=== PATIENT | female | born 1955 | race Caucasian/White ===

== ENCOUNTER 2018-09-07 09:10 | Day surgery (SDC) | payer MEDICARE, BC ==
[~2018-09-07] VITALS: Ht 162.6 cm; Wt 80.1 kg
[~2018-09-07 09:10] MED LIST: CYCL10 PO; Desyrel150 MG PO; FLUT1DIS8 INH; HYDSUL200 PO; IBUP800; PANT40 PO; SULF500A PO
[2018-09-07] MEDS ORDERED: HYDR1TAB94 (09:39)
[2018-09-07] MEDS ORDERED: LOSA25 (09:43)
[2018-09-07] MEDS ORDERED: HYDR-86 (09:43)
[2018-09-07] MEDS ORDERED: ALBU2.5V5 (09:44)
[2018-09-07] MEDS ORDERED: TIOT18 (09:44)
[2018-09-07] MEDS ORDERED: FLUO10 (09:45)
[2018-09-07] MEDS ORDERED: ATOR10 (09:45)
[2018-09-07] MEDS ORDERED: LEVSOD50 (09:45)
--- NOTE | 2018-09-07 10:00 | NUR ---
09/07/18 1000 Luli Maki FIRST IV UNSUCCESS IN R HAND SECOND IV SUCCESS IN R AC
--- NOTE | 2018-09-07 11:58 | NUR ---
09/07/18 1158 Luli Maki PT WITH TWISTY COLON PER MD PEÑALOZA. PT REPOSITIONED ONTO BACK IN THE ENDO ROOM TO COMPLETE COLONOSCOPY, UNABLE TO COMPLETE PROCEDURE DUE TO SHARP CORNER IN HER COLON THAT THE SCOPE COULD NOT BE PASSED. PT STABLE DURING THE PROCEDURE.
== END 2018-09-07 12:25 | disposition home or self-care (01) ==
LOC: ORSCSDS 09:10
PROVIDERS: Student in an Organized Health Care Education/Training Program
PROC: 0DB58ZX Excision of Esophagus, Via Natural or Artificial Opening Endoscopic, Diagnostic (ICD-10-PCS; principal; 2018-09-07 10:45)
PROC: 0DB68ZX Excision of Stomach, Via Natural or Artificial Opening Endoscopic, Diagnostic (ICD-10-PCS; principal; 2018-09-07 10:45)
PROC: 0DB98ZX Excision of Duodenum, Via Natural or Artificial Opening Endoscopic, Diagnostic (ICD-10-PCS; principal; 2018-09-07 10:45)
PROC: 0DBN8ZX Excision of Sigmoid Colon, Via Natural or Artificial Opening Endoscopic, Diagnostic (ICD-10-PCS; principal; 2018-09-07 10:45)
DX: K92.1 Melena (principal); R19.7 Diarrhea, unspecified; K21.9 Gastro-esophageal reflux disease without esophagitis; K29.80 Duodenitis without bleeding; K31.7 Polyp of stomach and duodenum; Q40.2 Other specified congenital malformations of stomach; K29.70 Gastritis, unspecified, without bleeding; K44.9 Diaphragmatic hernia without obstruction or gangrene; K63.5 Polyp of colon; I10 Essential (primary) hypertension; J44.9 Chronic obstructive pulmonary disease, unspecified; G47.33 Obstructive sleep apnea (adult) (pediatric); Z79.899 Other long term (current) drug therapy
CPT/HCPCS: 88305; 88342; J2405; J3010

== ENCOUNTER → 2018-09-28 | Outpatient (CLI) | payer MEDICARE, BC ==
[~2018-09-28] MED LIST changes: +ALBU2.5V5; +ATOR10; +FLUO10; +HYDR-86; +HYDR1TAB94; +LEVSOD50; +LOSA25; +TIOT18
== END | disposition home or self-care (01) ==
LOC: LAB 11:10 → LAB SHORT 11:10
DX: M54.9 Dorsalgia, unspecified (principal); G89.29 Other chronic pain; N39.0 Urinary tract infection, site not specified; Z79.899 Other long term (current) drug therapy
CPT/HCPCS: 87077; 87086; 87186; G0480

== ENCOUNTER → 2019-02-08 | Outpatient (CLI) | payer MEDICARE, OTHER | LOC: LAB SHORT 11:59 → LAB EV 11:59 | DX: N39.0 Urinary tract infection, site not specified (principal) | CPT/HCPCS: 87077; 87086; 87186 ==

== ENCOUNTER → 2019-11-15 | Outpatient (CLI) | payer MEDICARE ==
[2019-11-15 18:45] LABS: Bilirubin, Urine Neg (Neg); Blood, Urine Neg (Neg); Glucose Qualitative, Urine Neg (Neg); Ketones, Urine Neg (Neg); Leukocyte Esterase, Urine 1+ (Neg); Nitrite, Urine Neg (Neg); Protein, Urine Neg (Neg); Urobilinogen, Urine NORM (Normal)
[2019-11-15 19:06] LABS: Appearance, Urine Clear (Clear); Color, Urine Yellow (P-Yellow)
[2019-11-15 19:07] LABS: Bacteria Mod /hpf; Red Blood Cells, Urine 0-2 /hpf (0-2); Squamous Epithelial Cells Few /hpf (Few)
== END | disposition home or self-care (01) ==
LOC: LAB SHORT 17:58 → LAB 17:58
PROVIDERS: Nurse Practitioner Family
DX: R35.0 Frequency of micturition (principal)
CPT/HCPCS: 81001

== ENCOUNTER → 2019-12-07 | Outpatient (CLI) | payer MEDICARE | END | disposition home or self-care (01) | LOC: LAB EV 10:45 → LAB SHORT 10:45 | DX: R35.0 Frequency of micturition (principal) | CPT/HCPCS: 87077; 87086; 87186 ==

== ENCOUNTER → 2020-01-21 | Outpatient (CLI) | payer MEDICARE, OTHER | END | disposition home or self-care (01) | LOC: LAB EV 12:16 → LAB SHORT 12:16 | DX: R35.0 Frequency of micturition (principal) | CPT/HCPCS: 87077; 87086; 87186 ==

== ENCOUNTER → 2021-04-11 | Outpatient (CLI) | payer MEDICARE, OTHER ==
[2021-04-11 13:32] LABS: BASOPHILS ABSOLUTE AUTO 0.04 K/mm3 (0.00-0.23); BASOPHILS PERCENT AUTO 1 % (0-2); EOSINOPHILS ABSOLUTE AUTO 0.18 K/mm3 (0.00-0.68); EOSINOPHILS PERCENT AUTO 2 % (0-6); Hematocrit 40.1 % (33.0-51.0); Hemoglobin 12.1 g/dL (11.5-16.0); IMMATURE GRAN ABSOLUTE AUTO 0.03 K/mm3 (0.00-0.10); IMMATURE GRAN PERCENT AUTO 0 % (0-1); LYMPHOCYTES ABSOLUTE AUTO 1.47 K/mm3 (0.84-5.20); LYMPHOCYTES PERCENT AUTO 19 % (21-46); MONOCYTES ABSOLUTE AUTO 0.85 K/mm3 (0.16-1.47); MONOCYTES PERCENT AUTO 11 % (4-13); Mean Corpuscular HGB 27.7 pg (26.0-34.0); Mean Corpuscular HGB Conc 30.2 g/dL (31.5-36.5); Mean Corpuscular Volume 92 fL (80-100); Mean Platelet Volume 9.7 fL (9.1-12.4); NEUTROPHILS ABSOLUTE AUTO 5.32 K/mm3 (1.96-9.15); NEUTROPHILS PERCENT AUTO 67 % (41-73); Platelet Count 251 K/mm3 (150-400); RDW Coefficient Variation 15.2 % (11.7-14.2); RDW Standard Deviation 51.4 fL (35.1-46.3); Red Blood Cell Count 4.37 M/mm3 (3.80-5.20); White Blood Cell Count 7.89 K/mm3 (4.00-11.30)
== END | disposition home or self-care (01) ==
LOC: LAB 12:11 → LAB SHORT 12:11
PROVIDERS: Internal Medicine Rheumatology
DX: M06.9 Rheumatoid arthritis, unspecified (principal)
CPT/HCPCS: 84450; 85025; 85651

== ENCOUNTER → 2021-10-03 | Outpatient (CLI) | payer MEDICARE, OTHER ==
[2021-10-03 13:41] LABS: BASOPHILS ABSOLUTE AUTO 0.08 K/mm3 (0.00-0.23); BASOPHILS PERCENT AUTO 1 % (0-2); EOSINOPHILS ABSOLUTE AUTO 0.36 K/mm3 (0.00-0.68); EOSINOPHILS PERCENT AUTO 4 % (0-6); Hematocrit 41.7 % (33.0-51.0); Hemoglobin 12.5 g/dL (11.5-16.0); IMMATURE GRAN ABSOLUTE AUTO 0.02 K/mm3 (0.00-0.10); IMMATURE GRAN PERCENT AUTO 0 % (0-1); LYMPHOCYTES ABSOLUTE AUTO 2.08 K/mm3 (0.84-5.20); LYMPHOCYTES PERCENT AUTO 22 % (21-46); MONOCYTES ABSOLUTE AUTO 1.08 K/mm3 (0.16-1.47); MONOCYTES PERCENT AUTO 11 % (4-13); Mean Corpuscular HGB 26.8 pg (26.0-34.0); Mean Corpuscular Volume 89 fL (80-100); Mean Platelet Volume 10.6 fL (9.1-12.4); NEUTROPHILS ABSOLUTE AUTO 5.89 K/mm3 (1.96-9.15); NEUTROPHILS PERCENT AUTO 62 % (41-73); Platelet Count 360 K/mm3 (150-400); RDW Coefficient Variation 15.5 % (11.7-14.2); Red Blood Cell Count 4.67 M/mm3 (3.80-5.20); White Blood Cell Count 9.51 K/mm3 (4.00-11.30)
== END | disposition home or self-care (01) ==
LOC: LAB SHORT 09:40 → LAB 09:40
PROVIDERS: Internal Medicine Rheumatology
DX: M06.9 Rheumatoid arthritis, unspecified (principal)
CPT/HCPCS: 84450; 85025; 85651

== ENCOUNTER 2021-12-12 11:53 | Emergency (ER) | payer MEDICARE, OTHER ==
[~2021-12-12] VITALS: Ht 162.6 cm; Wt 71.7 kg
[2021-12-12 12:48] LABS: BASOPHILS ABSOLUTE AUTO 0.06 K/mm3 (0.00-0.23); BASOPHILS PERCENT AUTO 1 % (0-2); EOSINOPHILS ABSOLUTE AUTO 0.27 K/mm3 (0.00-0.68); EOSINOPHILS PERCENT AUTO 3 % (0-6); Hemoglobin 11.6 g/dL (11.5-16.0); IMMATURE GRAN ABSOLUTE AUTO 0.03 K/mm3 (0.00-0.10); IMMATURE GRAN PERCENT AUTO 0 % (0-1); LYMPHOCYTES ABSOLUTE AUTO 1.49 K/mm3 (0.84-5.20); LYMPHOCYTES PERCENT AUTO 16 % (21-46); MONOCYTES ABSOLUTE AUTO 1.23 K/mm3 (0.16-1.47); MONOCYTES PERCENT AUTO 13 % (4-13); Mean Corpuscular HGB 27.3 pg (26.0-34.0); Mean Corpuscular HGB Conc 30.5 g/dL (31.5-36.5); Mean Corpuscular Volume 89 fL (80-100); Mean Platelet Volume 10.1 fL (9.1-12.4); NEUTROPHILS ABSOLUTE AUTO 6.14 K/mm3 (1.96-9.15); NEUTROPHILS PERCENT AUTO 67 % (41-73); Platelet Count 302 K/mm3 (150-400); RDW Coefficient Variation 14.9 % (11.7-14.2); RDW Standard Deviation 48.1 fL (35.1-46.3); Red Blood Cell Count 4.25 M/mm3 (3.80-5.20); White Blood Cell Count 9.22 K/mm3 (4.00-11.30)
[2021-12-12 13:05] LABS: Alanine Aminotransfer (ALT/SGP 20 U/L (12-78); Albumin, Blood 3.3 g/dL (3.4-5.0); Albumin/Globulin Ratio 0.9 (0.8-1.8); Alk Phos 112 U/L (50-136); Anion Gap 6 mmol/L (6-16); Aspartate Aminotrans (AST/SGOT 26 U/L (12-37); Bilirubin, Total 0.7 mg/dL (0.1-1.0); Blood Urea Nitrogen 10 mg/dL (8-24); CO2, Blood 30 mmol/L (21-32); Calcium, Blood 8.9 mg/dL (8.5-10.1); Chloride, Blood 106 mmol/L (98-108); Creatinine, Blood 0.59 mg/dL (0.40-1.00); Globulin, Blood 3.8 g/dL (2.2-4.0); Glomerular Filtration Rate >60 (60-); Glucose, Blood 86 mg/dL (70-99); Potassium, Blood 3.4 mmol/L (3.5-5.5); Sodium, Blood 142 mmol/L (136-145); Total Protein, Blood 7.1 g/dL (6.4-8.2)
== END 2021-12-12 20:03 | disposition home or self-care (01) ==
LOC: ER 11:53
PROVIDERS: Student in an Organized Health Care Education/Training Program
DX: R51.9 Headache, unspecified (principal); I10 Essential (primary) hypertension; J44.9 Chronic obstructive pulmonary disease, unspecified; Z79.899 Other long term (current) drug therapy; Z87.891 Personal history of nicotine dependence
CPT/HCPCS: 36415; 70450; 80053; 85025; J1200; J1790; J1885; J2060; J2550

== ENCOUNTER 2021-12-16 23:16 | Inpatient (IN) | payer MEDICARE, OTHER ==
[~2021-12-16] VITALS: Ht 160 cm; Wt 65.0 kg
[~2021-12-16 23:16] MED LIST changes: +ALBU90OI INH; +ASPI81CH PO; -ATOR10; +ATOR80 PO; +CLOP75 PO; -HYDR1TAB94; -IBUP800; +IBUP800 PO; +LEVSOD137 PO; -LOSA25; +LOSA50 PO; +Norco 7.5-3251 EACH PO; -TIOT18; +TIOT18 INH
[2021-12-17 00:23] LABS: BASOPHILS ABSOLUTE AUTO 0.07 K/mm3 (0.00-0.23); BASOPHILS PERCENT AUTO 1 % (0-2); EOSINOPHILS ABSOLUTE AUTO 0.28 K/mm3 (0.00-0.68); EOSINOPHILS PERCENT AUTO 2 % (0-6); Hematocrit 40.6 % (33.0-51.0); Hemoglobin 12.9 g/dL (11.5-16.0); IMMATURE GRAN ABSOLUTE AUTO 0.05 K/mm3 (0.00-0.10); IMMATURE GRAN PERCENT AUTO 0 % (0-1); LYMPHOCYTES ABSOLUTE AUTO 1.34 K/mm3 (0.84-5.20); LYMPHOCYTES PERCENT AUTO 11 % (21-46); MONOCYTES ABSOLUTE AUTO 1.44 K/mm3 (0.16-1.47); MONOCYTES PERCENT AUTO 12 % (4-13); Mean Corpuscular HGB 27.9 pg (26.0-34.0); Mean Corpuscular HGB Conc 31.8 g/dL (31.5-36.5); Mean Corpuscular Volume 88 fL (80-100); Mean Platelet Volume 10.4 fL (9.1-12.4); NEUTROPHILS PERCENT AUTO 73 % (41-73); Platelet Count 314 K/mm3 (150-400); RDW Coefficient Variation 14.1 % (11.7-14.2); RDW Standard Deviation 45.4 fL (35.1-46.3); Red Blood Cell Count 4.62 M/mm3 (3.80-5.20); White Blood Cell Count 11.88 K/mm3 (4.00-11.30)
[2021-12-17 00:38] LABS: International Normalized Ratio 1.14; Prothrombin Time Results 11.9 Sec (9.7-11.5)
[2021-12-17 00:48] LABS: Alanine Aminotransfer (ALT/SGP 22 U/L (12-78); Albumin/Globulin Ratio 0.8 (0.8-1.8); Alk Phos 95 U/L (50-136); Anion Gap 8 mmol/L (6-16); Aspartate Aminotrans (AST/SGOT 31 U/L (12-37); Bilirubin, Total 0.5 mg/dL (0.1-1.0); Blood Urea Nitrogen 19 mg/dL (8-24); Bun/Creatinine Ratio 25.8 (12.0-20.0); CO2, Blood 26 mmol/L (21-32); Calcium, Blood 8.7 mg/dL (8.5-10.1); Chloride, Blood 104 mmol/L (98-108); Creatinine, Blood 0.74 mg/dL (0.40-1.00); Ethanol (Alcohol), Blood, Med <3 mg/dL; Globulin, Blood 3.8 g/dL (2.2-4.0); Glomerular Filtration Rate >60 (60-); Glucose, Blood 145 mg/dL (70-99); Potassium, Blood 3.8 mmol/L (3.5-5.5); Sodium, Blood 138 mmol/L (136-145); Total Protein, Blood 6.8 g/dL (6.4-8.2)
[2021-12-17 01:20] LABS: Source, Urine Foley catheter
[2021-12-17 01:26] LABS: Bilirubin, Urine Neg (Neg); Blood, Urine Neg (Neg); Glucose Qualitative, Urine Neg (Neg); Ketones, Urine Neg (Neg); Leukocyte Esterase, Urine Neg (Neg); Nitrite, Urine Neg (Neg); Protein, Urine 2+ (Neg); Urobilinogen, Urine NORM (Normal); pH, Urine 6.5 (5.0-8.0)
[2021-12-17 01:32] LABS: Appearance, Urine Clear (Clear); Bacteria Not Seen /hpf; Color, Urine Yellow (P-Yellow); Red Blood Cells, Urine Not Seen /hpf (0-2); Squamous Epithelial Cells Not Seen /hpf (Few); White Blood Cells, Urine Rare /hpf (0-5)
[2021-12-17 01:36] LABS: U Amphetamine Screen Not Detected; U Barbituate Screen Not Detected; U Benzodiazapine Screen DETECTED; U Buprenorphine Screen Not Detected; U Cannabinoids Screen Not Detected; U Cocaine Screen Not Detected; U Methadone Screen Not Detected; U Methamphetamine Screen Not Detected; U Opiates Screen Not Detected; U Oxycodone Screen Not Detected; U Phencyclidine Screen Not Detected; U Propoxyphene Screen Not Detected
[2021-12-17 02:37] LABS: PCO2 Arterial 41.9 mmHg (35-45); PO2 Arterial 55.4 mmHg (80-100); pH Blood Arterial 7.38 (7.35-7.45)
--- NOTE | 2021-12-17 03:37 | NUR ---
ASSUMED CARE. PT ARRIVED TO ICU AT APPROXIMATELY 0320. REPORT RECEIVED FROM ER NURSE. PT ON 3 L/MIN 02 VIA NC. PT SEDATED BUT AROUSABLE, WILL OPEN EYES BUT DOES NOT RESPOND VERBALLY OR FOLLOW COMMANDS. ER NURSE STATED PATIENT RECEIVED AROUND 6MG ATIVAN FOR AGITATION IN THE ER PRIOR TO COMING TO ICU. PT HAS IV ACCESS IN R/AC, L/AC AND L/WRIST. JOSE CATHETER IN PLACE, YELLOW URINE OUTPUT NOTED. VS STABLE AT TIME OF ARRIVAL, WILL CONTINUE TO MONITOR.
--- NOTE | 2021-12-17 06:39 | NUR ---
SHIFT SUMMARY. PT SLEPT IN BED FROM TIME OF ADMISSION UNTIL NOW. NS RUNNING AT 75 ML/HR. 02 3 L/MIN VIA NC. JOSE CATHETER IN PLACE, 200 MLS OUT. VS STABLE, SEE ASSESSMENT FOR FURTHER DETAILS. WILL CONTINUE TO MONITOR AND REPORT OFF TO DAYSHIFT RN.
--- NOTE | 2021-12-17 07:19 | NUR ---
Assumed care of pt at 0700. Report received from Tam MOYA. Pt is PCU status. Sleeping in bed at this time. VSS.
[2021-12-17 08:05] LABS: BASOPHILS ABSOLUTE AUTO 0.09 K/mm3 (0.00-0.23); BASOPHILS PERCENT AUTO 1 % (0-2); EOSINOPHILS ABSOLUTE AUTO 0.25 K/mm3 (0.00-0.68); EOSINOPHILS PERCENT AUTO 2 % (0-6); Hematocrit 40.5 % (33.0-51.0); Hemoglobin 12.5 g/dL (11.5-16.0); IMMATURE GRAN ABSOLUTE AUTO 0.03 K/mm3 (0.00-0.10); IMMATURE GRAN PERCENT AUTO 0 % (0-1); LYMPHOCYTES ABSOLUTE AUTO 2.08 K/mm3 (0.84-5.20); LYMPHOCYTES PERCENT AUTO 17 % (21-46); MONOCYTES ABSOLUTE AUTO 1.96 K/mm3 (0.16-1.47); MONOCYTES PERCENT AUTO 16 % (4-13); Mean Corpuscular HGB 27.5 pg (26.0-34.0); Mean Corpuscular HGB Conc 30.9 g/dL (31.5-36.5); Mean Corpuscular Volume 89 fL (80-100); Mean Platelet Volume 10.2 fL (9.1-12.4); NEUTROPHILS ABSOLUTE AUTO 7.57 K/mm3 (1.96-9.15); NEUTROPHILS PERCENT AUTO 63 % (41-73); Platelet Count 273 K/mm3 (150-400); RDW Coefficient Variation 14.2 % (11.7-14.2); RDW Standard Deviation 46.5 fL (35.1-46.3); Red Blood Cell Count 4.54 M/mm3 (3.80-5.20); White Blood Cell Count 11.98 K/mm3 (4.00-11.30)
[2021-12-17 08:24] LABS: Alanine Aminotransfer (ALT/SGP 19 U/L (12-78); Albumin/Globulin Ratio 0.8 (0.8-1.8); Alk Phos 93 U/L (50-136); Anion Gap 8 mmol/L (6-16); Aspartate Aminotrans (AST/SGOT 36 U/L (12-37); Bilirubin, Total 0.5 mg/dL (0.1-1.0); Blood Urea Nitrogen 17 mg/dL (8-24); Bun/Creatinine Ratio 29.9 (12.0-20.0); CO2, Blood 22 mmol/L (21-32); Calcium, Blood 8.4 mg/dL (8.5-10.1); Chloride, Blood 109 mmol/L (98-108); Creatinine, Blood 0.57 mg/dL (0.40-1.00); Globulin, Blood 3.6 g/dL (2.2-4.0); Glomerular Filtration Rate >60 (60-); Glucose, Blood 86 mg/dL (70-99); Potassium, Blood 3.8 mmol/L (3.5-5.5); Sodium, Blood 139 mmol/L (136-145); Total Protein, Blood 6.6 g/dL (6.4-8.2)
--- NOTE | 2021-12-17 08:45 | NUR ---
Report given to Merly MOYA, who assumes care of pt at this time
--- NOTE | 2021-12-17 09:08 | NUR ---
ASSUMED CARE AT 0845. PT SLEEPING BUT AWAKES TO VOICE AND FOLLOWS COMMANDS. AT BEDSIDE. SEE SHIFT ASSESSMENT FOR DETAILS.
--- NOTE | 2021-12-17 14:39 | NUR ---
Initial palliative care consult: Ofelia is a 66 year old with a history of COPD, HTN, hyperlidipidemia, depression, hypothroidism, RA, sleep apnea, chronic back pain. 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 Ofelia slept through the visit, she did not awaken to voice. Her Leroy is at the bedside and the visit was spent talking with him. Leroy reports Ofelia was recently admitted for a CVA. She has a sister who had a CVA in her 60s who now has no residual effects. Leroy reports last night that when they got home from the hospital that Ofelia was weak. Leroy reports that Ofelia had a fall in the bathroom last night and he had to call 911 to have the paramedics come pick her up and take her to the hospital. He states her eyes were wide open and her mouth was wide open. He reports that this was very scarey for him. Ofelia was a DNR during the last admission but he states he changed her code status to a full code earlier today as he is waiting for their dtr to come from [place] and he didn't want to have something happen to Ofelia prior to her dtr getting here. Leroy reports that Ofelia prior to her CVA was very active. She drove, shopped and was able to perform her own ADLs. Ofelia manages the finances and pays all the bills. She wears home O2 as she has had COPD for the past 20 years. Leroy reports that he and Ofelia have not had any conversations about advanced care planning. They do not have an AD or POLST form. Leroy states his dtr has been encouraging them to complete some of these forms for some time. Offered to obtain AD and POLST forms for jose m to review while he has some time prior to his dtr arriving. Leroy asked for the forms and states that they will need to have some conversation about filling out the forms when his dtr arrives tomorrow. Offered to him to have the bedside nurse contact the certified orthotist or PC team to assist them with the forms if they have questions or need any assistance. Leroy was grateful for the forms. He plans to review the forms prior to his dtr's arrival. Visit ended as Ofelia is being moved out of ICU to the medical floor. Will plan to have PC check in on Ofelia and her family in the coming days to assist with advanced care planning prn.
--- NOTE | 2021-12-17 15:19 | NUR ---
PT TRANSFERRED TO MEDICAL FLOOR AT 1445. REPORT GIVEN TO GRIFFIN HAMEED. AT BEDSIDE AT TIME OF TRANSFER. ALL BELONGINGS TRANSFERRED WITH PATIENT.
--- NOTE | 2021-12-17 17:00 | NUR ---
SHIFT SUMMARY; PATIENT TRANSFERRED FROM ICU TODAY. SHE IS RESPONSIVE TO VERBAL STIMULI. PATIENT REMAINS ON 2 LITERS NASAL CANNULA. SHE APPEARS TO BE SLEEPING. VITAL SIGNS ARE STABLE WITH B/P BEING SLIGHTLY ELEVATED AT 147/78 SHE IS IN SINUS RHYTHM. NADN. MOVES ALL EXTREMITIES WITHOUT DIFFICULTY TO PAINFULL STIMULI. LUNGS ARE CLEAR. SNORING RESPS ARE HEARD. SPOUSE TO BRING IN BIPAP MACHINE
[2021-12-18 05:15] LABS: BASOPHILS ABSOLUTE AUTO 0.09 K/mm3 (0.00-0.23); BASOPHILS PERCENT AUTO 1 % (0-2); EOSINOPHILS ABSOLUTE AUTO 0.75 K/mm3 (0.00-0.68); EOSINOPHILS PERCENT AUTO 7 % (0-6); Hematocrit 38.4 % (33.0-51.0); Hemoglobin 11.9 g/dL (11.5-16.0); IMMATURE GRAN ABSOLUTE AUTO 0.05 K/mm3 (0.00-0.10); IMMATURE GRAN PERCENT AUTO 1 % (0-1); LYMPHOCYTES ABSOLUTE AUTO 1.49 K/mm3 (0.84-5.20); LYMPHOCYTES PERCENT AUTO 14 % (21-46); MONOCYTES ABSOLUTE AUTO 1.25 K/mm3 (0.16-1.47); MONOCYTES PERCENT AUTO 11 % (4-13); Mean Corpuscular Volume 87 fL (80-100); Mean Platelet Volume 10.4 fL (9.1-12.4); NEUTROPHILS ABSOLUTE AUTO 7.44 K/mm3 (1.96-9.15); NEUTROPHILS PERCENT AUTO 67 % (41-73); Platelet Count 230 K/mm3 (150-400); RDW Coefficient Variation 14.1 % (11.7-14.2); RDW Standard Deviation 45.4 fL (35.1-46.3); White Blood Cell Count 11.07 K/mm3 (4.00-11.30)
[2021-12-18 05:37] LABS: Anion Gap 11 mmol/L (6-16); Blood Urea Nitrogen 16 mg/dL (8-24); CO2, Blood 19 mmol/L (21-32); Calcium, Blood 8.4 mg/dL (8.5-10.1); Chloride, Blood 114 mmol/L (98-108); Creatinine, Blood 0.46 mg/dL (0.40-1.00); Glomerular Filtration Rate >60 (60-); Glucose, Blood 64 mg/dL (70-99); Potassium, Blood 3.7 mmol/L (3.5-5.5); Sodium, Blood 144 mmol/L (136-145)
--- NOTE | 2021-12-18 05:46 | NUR ---
SHIFT SUMMARY AOX2-SELF, PLACE, FOLLOWING DIRECTIONS @HS. VERY DROWSY. SLOW TO RESPOND. FORGETFUL OF WHY SHES AT HOSPITAL OR DATE. HOWEVER THIS AM PT IS MORE AWAKE & ALERT & CONVERSING c STAFF. STATES, "THIS CPAP MASK IS LOUD." VSS. TELE NSR @89. WORE CPAP WHILE ASLEEP, SPO2 >90%. NO FACIAL DROOP NOTICED. L HAND ENTERTAINMENT CENTRE MANAGER WEAKER THEN R HAND. REPORTS PAIN IN SHOULDERS FROM FALL AT HOME, REPOSITIONED FOR COMFORT, DENIED NEED FOR MEDICATION. CALL LIGHT IN REACH, BED ALARM IN PLACE.
--- NOTE | 2021-12-18 10:30 | NUR ---
Spiritual Care Note. Responding to a Spiritual Care Visit request. Pt. is sitting up in bed and welcomes my visit. Pt. is pleasant. 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 Pt. displays evidence of clarity but is uncertain about what her prognosis is. Listen empatheticially, and continue to develop rapport. Prayed for Pt. and spouse. Both verbalized gratitude for the spiritual care visit.
--- NOTE | 2021-12-18 18:31 | NUR ---
SHIFT SUMMARY; PATIENT IS VERY ALERT TODAY. SHE IS CONFUSED MOST OF DAY AND VERY IMPULSIIVE. TRYING TO GET UP OUT OF BED. ALSO WHEN SHE IS ASSISTED TO BATHROOM SHE GETS OFF TOILET WITHOUT USING HER WALKER AND IS A BIG FALL RISK SHE IS UNSTEADY. PATIENT PASSED HER SWALLOW STUDY THIS AM AND IS NO LONGER NPO. FAMILY AT BEDSIDE MOST OF DAY AND ASSISTS HER WITH EATING HER MEALS. SHE IS ON A REGULAR DIET. PT AND OT BOTH RECOMMEND SNF AND FAMILY IS AGREABLE TO HER GOING SHE NEDS TO GET STRONGER SO HER SPOUSE CAN ASSIST IN HER CARE AT HOME. SHE TAKES HER PILLS WHOLE WITH WATER. REEMAINS ON 2 LITERS VIA CANNULA. HER JOSE WAS REMOVE TODAY AND ATTENDS ARE PLACED FOR COMFORT. PATIENTS LUNGS ARE CLEAR HOWVER WHEEZES IN THE UPPER AIIRWAY WITH INSPIRATIONN AND EXPRATION. REMAINS ON TELE NSR PER TELE STRIP IN CHART. [address] IV[address] AND PATTENT AT THIS TIME AND SALINE LOCKED. WILL REMAIN AVAILABLE FOR THIS PATIENT AND FAMILY UNTIL REPORT AND HAND OFF TO NOC SHIFT RN.
[2021-12-19] MEDS ORDERED: ALBU2.5V5 INH (01:30)
--- NOTE | 2021-12-19 15:18 | NUR ---
Spiritual Care Visit. Pt. is alert and in bed. Pt. welcomes my visit. Spouse is present. Pt. is pleasant and verbalizes gratitude that she has been receiving good care. Pt. has a wonderful sense of humor. Re-establish rapport. Pt. displays evidence of agreement and trust in God for what is next in her recovery. Prayed with Pt. and spouse. Both Pt. and Spouse verbalize gratitude for the spiritual care visit.
--- NOTE | 2021-12-19 17:16 | NUR ---
SHIFT SUMMARY PATIENT IS ALERT AND ORIENTED X3. PATIENT IS PLEASENT AND COOPERATIVE WITH CARE. PATIENT REMAINS CONFUSED. PATIENT IS A ONE PERSON ASSIST TO BATHROOM, HOWEVER REMAINS UNSTEADY. PATIENT IS ON 3 LITERS NASAL CANNULA. PATIENT IS PLANNING ON DISCHARGING TO SNF TOMORROW. PATIENT IS ON TELE AND RUNNING SINUS TACH. PATIENTS BP IS ELEVATED AND IS STARTING NEW SCHEDULED BP MEDICATION. PATIENT IS ON CONTINIOUS BIOX TO KEEP ABOVE 90 PERCENT. BED IS LOCKED AND IN LOWEST POSITION. CALL LIGHT IN PLACE. WILL MONITOR UNTIL SHIFT CHANGE.
--- NOTE | 2021-12-20 04:40 | NUR ---
SHIFT SUMMARY: PATIENT FORGETFUL AND IMPULSIVE REMOVED BIOX SENSOR AND TELE MULTIPLE TIMES, PULLED 1 PIV, MULTIPLE BED EXITS. EASILY REDIRECTABLE. SBA WITH FWW TO BATHROOM. TELE = NSR/ST HR ELEVATES WHEN AMBULATING. NO SIGNIFICANT EVENTS ON NOC.
[2021-12-20] MEDS ORDERED: AMLO10 PO (10:39)
[2021-12-20 11:44] LABS: Influenza A, PCR NEGATIVE (NEGATIVE); Influenza B, PCR NEGATIVE (NEGATIVE); Resp Syncytial Virus, PCR NEGATIVE (NEGATIVE); SARS-Cov-2 (COVID-19) PCR, MMC NEGATIVE (NEGATIVE)
== END 2021-12-20 14:48 | DRG 64 ==
LOC: ER 23:16 → ICUW 12-17 02:18 → PCU 12-17 02:18 → ICUW 12-17 03:12 → MEDS 12-17 14:35
PROVIDERS: Student in an Organized Health Care Education/Training Program; ADMIT Internal Medicine
DX: I63.89 Other cerebral infarction (principal); G92.8 Other toxic encephalopathy; G81.94 Hemiplegia, unspecified affecting left nondominant side; R47.81 Slurred speech; I10 Essential (primary) hypertension; E78.5 Hyperlipidemia, unspecified; E16.2 Hypoglycemia, unspecified; Z20.822 Contact with and (suspected) exposure to COVID-19; Z66 Do not resuscitate; J44.9 Chronic obstructive pulmonary disease, unspecified; E03.9 Hypothyroidism, unspecified; F32.9 Major depressive disorder, single episode, unspecified; M06.9 Rheumatoid arthritis, unspecified; G47.33 Obstructive sleep apnea (adult) (pediatric); G89.29 Other chronic pain; M54.50 Low back pain, unspecified; Z98.890 Other specified postprocedural states; Z99.81 Dependence on supplemental oxygen; Z79.82 Long term (current) use of aspirin; Z79.890 Hormone replacement therapy; Z79.899 Other long term (current) drug therapy; Z87.891 Personal history of nicotine dependence
CPT/HCPCS: 0241U; 36415; 36600; 51702; 70450; 70496; 70498; 71045; 80048; 80053; 81001; 82803; 84145; 85025; 85610; 85730; 86850; 86900; 86901; 92610; 93005; 93010; 93308; 93321; 94640; 94664; 94760; 94762; 95819; 96374-59; 96375; 97110; 97112; 97116; 97162; 97166; 97530; 97535; 99285-25; A9270; G0480; J1650; J1953; J2060; J7030; J7060; Q9967

== ENCOUNTER → 2022-06-11 | Outpatient (CLI) | payer MEDICARE, OTHER ==
[~2022-06-11] MED LIST changes: +ALBU2.5V5 INH; +AMLO10 PO
== END ==
LOC: LAB SHORT 16:42 → LAB 16:42
DX: E03.9 Hypothyroidism, unspecified (principal)
CPT/HCPCS: 84443

== ENCOUNTER → 2022-08-14 | Outpatient (CLI) | payer MEDICARE, OTHER ==
[2022-08-14 15:56] LABS: BASOPHILS ABSOLUTE AUTO 0.07 K/mm3 (0.00-0.23); BASOPHILS PERCENT AUTO 1 % (0-2); EOSINOPHILS ABSOLUTE AUTO 0.13 K/mm3 (0.00-0.68); EOSINOPHILS PERCENT AUTO 2 % (0-6); Hematocrit 31.6 % (33.0-51.0); Hemoglobin 9.8 g/dL (11.5-16.0); IMMATURE GRAN ABSOLUTE AUTO 0.02 K/mm3 (0.00-0.10); IMMATURE GRAN PERCENT AUTO 0 % (0-1); LYMPHOCYTES ABSOLUTE AUTO 1.67 K/mm3 (0.84-5.20); LYMPHOCYTES PERCENT AUTO 20 % (21-46); MONOCYTES ABSOLUTE AUTO 1.18 K/mm3 (0.16-1.47); MONOCYTES PERCENT AUTO 14 % (4-13); Mean Corpuscular HGB 28.8 pg (26.0-34.0); Mean Corpuscular Volume 93 fL (80-100); Mean Platelet Volume 9.9 fL (9.1-12.4); NEUTROPHILS ABSOLUTE AUTO 5.13 K/mm3 (1.96-9.15); NEUTROPHILS PERCENT AUTO 63 % (41-73); Platelet Count 391 K/mm3 (150-400); RDW Coefficient Variation 15.3 % (11.7-14.2); RDW Standard Deviation 49.7 fL (35.1-46.3)
[2022-08-14 17:22] LABS: Albumin, Blood 3.3 g/dL (3.4-5.0); Bilirubin, Total 0.3 mg/dL (0.1-1.0); Bun/Creatinine Ratio 19.2 (12.0-20.0); Calcium, Blood 8.3 mg/dL (8.5-10.1); Creatinine, Blood 0.73 mg/dL (0.40-1.00); Globulin, Blood 3.2 g/dL (2.2-4.0); Potassium, Blood 3.6 mmol/L (3.5-5.5); Total Protein, Blood 6.5 g/dL (6.4-8.2)
== END ==
LOC: LAB SHORT 13:21
PROVIDERS: Internal Medicine Rheumatology
DX: M06.9 Rheumatoid arthritis, unspecified (principal)
CPT/HCPCS: 80053; 85025; 85651

== ENCOUNTER → 2023-01-23 | Outpatient (CLI) | payer MEDICARE ==
[2023-01-23 18:03] LABS: BASOPHILS ABSOLUTE AUTO 0.06 K/mm3 (0.00-0.23); BASOPHILS PERCENT AUTO 1 % (0-2); EOSINOPHILS ABSOLUTE AUTO 0.33 K/mm3 (0.00-0.68); EOSINOPHILS PERCENT AUTO 4 % (0-6); Hematocrit 35.1 % (33.0-51.0); Hemoglobin 10.5 g/dL (11.5-16.0); IMMATURE GRAN ABSOLUTE AUTO 0.03 K/mm3 (0.00-0.10); IMMATURE GRAN PERCENT AUTO 0 % (0-1); LYMPHOCYTES ABSOLUTE AUTO 1.41 K/mm3 (0.84-5.20); LYMPHOCYTES PERCENT AUTO 19 % (21-46); MONOCYTES ABSOLUTE AUTO 1.09 K/mm3 (0.16-1.47); MONOCYTES PERCENT AUTO 14 % (4-13); Mean Corpuscular HGB 26.9 pg (26.0-34.0); Mean Corpuscular HGB Conc 29.9 g/dL (31.5-36.5); Mean Corpuscular Volume 90 fL (80-100); Mean Platelet Volume 10.6 fL (9.1-12.4); NEUTROPHILS PERCENT AUTO 62 % (41-73); Platelet Count 346 K/mm3 (150-400); RDW Standard Deviation 48.8 fL (35.1-46.3); Red Blood Cell Count 3.91 M/mm3 (3.80-5.20); White Blood Cell Count 7.62 K/mm3 (4.00-11.30)
[2023-01-23 18:17] LABS: Albumin, Blood 3.2 g/dL (3.4-5.0); Albumin/Globulin Ratio 0.8 (0.8-1.8); Bilirubin, Total 0.3 mg/dL (0.1-1.0); Bun/Creatinine Ratio 27.2 (12.0-20.0); Creatinine, Blood 0.7 mg/dL (0.40-1.00); Globulin, Blood 3.8 g/dL (2.2-4.0); Potassium, Blood 3.6 mmol/L (3.5-5.5)
== END | disposition home or self-care (01) ==
LOC: LAB SHORT 14:13 → LAB 14:13
PROVIDERS: Internal Medicine Rheumatology
DX: M06.9 Rheumatoid arthritis, unspecified (principal)
CPT/HCPCS: 80053; 85025; 85651

== ENCOUNTER → 2023-04-30 | Outpatient (CLI) | payer MEDICARE ==
[2023-04-30 14:37] LABS: BASOPHILS ABSOLUTE AUTO 0.09 K/mm3 (0.00-0.23); BASOPHILS PERCENT AUTO 1 % (0-2); EOSINOPHILS ABSOLUTE AUTO 0.24 K/mm3 (0.00-0.68); EOSINOPHILS PERCENT AUTO 4 % (0-6); Hemoglobin 10.7 g/dL (11.5-16.0); IMMATURE GRAN ABSOLUTE AUTO 0.02 K/mm3 (0.00-0.10); IMMATURE GRAN PERCENT AUTO 0 % (0-1); LYMPHOCYTES ABSOLUTE AUTO 1.38 K/mm3 (0.84-5.20); LYMPHOCYTES PERCENT AUTO 21 % (21-46); MONOCYTES ABSOLUTE AUTO 0.98 K/mm3 (0.16-1.47); MONOCYTES PERCENT AUTO 15 % (4-13); Mean Corpuscular HGB 26.6 pg (26.0-34.0); Mean Corpuscular HGB Conc 29.7 g/dL (31.5-36.5); Mean Corpuscular Volume 90 fL (80-100); Mean Platelet Volume 9.9 fL (9.1-12.4); NEUTROPHILS ABSOLUTE AUTO 3.95 K/mm3 (1.96-9.15); NEUTROPHILS PERCENT AUTO 59 % (41-73); Platelet Count 331 K/mm3 (150-400); RDW Coefficient Variation 16.9 % (11.7-14.2); RDW Standard Deviation 53.1 fL (35.1-46.3); Red Blood Cell Count 4.02 M/mm3 (3.80-5.20); White Blood Cell Count 6.66 K/mm3 (4.00-11.30)
[2023-04-30 15:13] LABS: Albumin, Blood 3.3 g/dL (3.4-5.0); Albumin/Globulin Ratio 0.8 (0.8-1.8); Bilirubin, Total 0.4 mg/dL (0.1-1.0); Bun/Creatinine Ratio 23.9 (12.0-20.0); Calcium, Blood 8.8 mg/dL (8.5-10.1); Creatinine, Blood 0.75 mg/dL (0.40-1.00); Globulin, Blood 3.9 g/dL (2.2-4.0); Potassium, Blood 3.7 mmol/L (3.5-5.5); Total Protein, Blood 7.2 g/dL (6.4-8.2)
== END ==
LOC: LAB 13:29 → LAB SHORT 13:29
PROVIDERS: Internal Medicine Rheumatology
DX: M06.9 Rheumatoid arthritis, unspecified (principal)
CPT/HCPCS: 80053; 85025; 85651

== ENCOUNTER → 2023-07-30 | Outpatient (CLI) | payer MEDICARE ==
[2023-07-30 15:26] LABS: BASOPHILS ABSOLUTE AUTO 0.07 K/mm3 (0.00-0.23); BASOPHILS PERCENT AUTO 1 % (0-2); EOSINOPHILS ABSOLUTE AUTO 0.16 K/mm3 (0.00-0.68); EOSINOPHILS PERCENT AUTO 1 % (0-6); Hematocrit 43.7 % (33.0-51.0); Hemoglobin 12.8 g/dL (11.5-16.0); IMMATURE GRAN ABSOLUTE AUTO 0.05 K/mm3 (0.00-0.10); IMMATURE GRAN PERCENT AUTO 0 % (0-1); LYMPHOCYTES ABSOLUTE AUTO 2.54 K/mm3 (0.84-5.20); LYMPHOCYTES PERCENT AUTO 20 % (21-46); MONOCYTES ABSOLUTE AUTO 1.75 K/mm3 (0.16-1.47); MONOCYTES PERCENT AUTO 14 % (4-13); Mean Corpuscular HGB 26.6 pg (26.0-34.0); Mean Corpuscular HGB Conc 29.3 g/dL (31.5-36.5); Mean Corpuscular Volume 91 fL (80-100); Mean Platelet Volume 10.8 fL (9.1-12.4); NEUTROPHILS ABSOLUTE AUTO 8.11 K/mm3 (1.96-9.15); NEUTROPHILS PERCENT AUTO 64 % (41-73); Platelet Count 455 K/mm3 (150-400); RDW Coefficient Variation 16.8 % (11.7-14.2); RDW Standard Deviation 55.5 fL (35.1-46.3); Red Blood Cell Count 4.81 M/mm3 (3.80-5.20); White Blood Cell Count 12.68 K/mm3 (4.00-11.30)
[2023-07-30 16:11] LABS: Albumin, Blood 3.4 g/dL (3.4-5.0); Bilirubin, Total 0.5 mg/dL (0.1-1.0); Bun/Creatinine Ratio 33.8 (12.0-20.0); Calcium, Blood 8.7 mg/dL (8.5-10.1); Creatinine, Blood 0.74 mg/dL (0.40-1.00); Globulin, Blood 3.4 g/dL (2.2-4.0); Potassium, Blood 3.4 mmol/L (3.5-5.5); Total Protein, Blood 6.8 g/dL (6.4-8.2)
== END ==
LOC: LAB 14:15 → LAB SHORT 14:15
PROVIDERS: Internal Medicine Rheumatology
DX: M06.9 Rheumatoid arthritis, unspecified (principal)
CPT/HCPCS: 80053; 85025; 85651

== ENCOUNTER → 2023-09-03 | Outpatient (CLI) | payer MEDICARE ==
[2023-09-05 08:10] LABS: A/G RATIO 1.8 (1.2-2.2); BILIRUBIN, TOTAL 0.5 mg/dL (0.0-1.2); CREATININE, SERUM 0.85 mg/dL (0.57-1.00); GLOBULIN, TOTAL 2.2 g/dL (1.5-4.5); POTASSIUM, SERUM 4.5 mmol/L (3.5-5.2); PROTEIN, TOTAL, SERUM 6.1 g/dL (6.0-8.5)
== END ==
LOC: LAB SHORT 16:18 → LAB 16:18
PROVIDERS: Family Medicine Adult Medicine
DX: J44.9 Chronic obstructive pulmonary disease, unspecified (principal)
CPT/HCPCS: 80053; 83735

== ENCOUNTER → 2023-09-10 | Outpatient (CLI) | payer MEDICARE ==
[2023-09-10 14:13] LABS: BASOPHILS ABSOLUTE AUTO 0.05 K/mm3 (0.00-0.23); BASOPHILS PERCENT AUTO 1 % (0-2); EOSINOPHILS ABSOLUTE AUTO 0.13 K/mm3 (0.00-0.68); EOSINOPHILS PERCENT AUTO 2 % (0-6); Hematocrit 37.9 % (33.0-51.0); Hemoglobin 11.4 g/dL (11.5-16.0); IMMATURE GRAN ABSOLUTE AUTO 0.01 K/mm3 (0.00-0.10); IMMATURE GRAN PERCENT AUTO 0 % (0-1); LYMPHOCYTES ABSOLUTE AUTO 1.17 K/mm3 (0.84-5.20); LYMPHOCYTES PERCENT AUTO 14 % (21-46); MONOCYTES ABSOLUTE AUTO 0.98 K/mm3 (0.16-1.47); MONOCYTES PERCENT AUTO 12 % (4-13); Mean Corpuscular HGB 27.5 pg (26.0-34.0); Mean Corpuscular HGB Conc 30.1 g/dL (31.5-36.5); Mean Corpuscular Volume 92 fL (80-100); Mean Platelet Volume 10.7 fL (9.1-12.4); NEUTROPHILS ABSOLUTE AUTO 5.84 K/mm3 (1.96-9.15); NEUTROPHILS PERCENT AUTO 71 % (41-73); Platelet Count 295 K/mm3 (150-400); RDW Coefficient Variation 17.7 % (11.7-14.2); RDW Standard Deviation 57.5 fL (35.1-46.3); Red Blood Cell Count 4.14 M/mm3 (3.80-5.20); White Blood Cell Count 8.18 K/mm3 (4.00-11.30)
[2023-09-10 14:28] LABS: Albumin, Blood 3.2 g/dL (3.4-5.0); Bilirubin, Total 0.6 mg/dL (0.1-1.0); Bun/Creatinine Ratio 20.8 (12.0-20.0); Calcium, Blood 8.9 mg/dL (8.5-10.1); Creatinine, Blood 0.96 mg/dL (0.40-1.00); Globulin, Blood 3.2 g/dL (2.2-4.0); Potassium, Blood 4.2 mmol/L (3.5-5.5); Total Protein, Blood 6.4 g/dL (6.4-8.2)
== END ==
LOC: LAB 14:08 → LAB SHORT 14:08
PROVIDERS: Physician Assistant Medical
DX: J44.1 Chronic obstructive pulmonary disease with (acute) exacerbation (principal)
CPT/HCPCS: 80053; 85025

== ENCOUNTER → 2024-03-16 | Outpatient (CLI) | payer MEDICARE ==
[~2024-03-16] MED LIST changes: +DELTASONE20 MG PO
[2024-03-16 12:49] LABS: BASOPHILS ABSOLUTE AUTO 0.08 K/mm3 (0.00-0.23); BASOPHILS PERCENT AUTO 1 % (0-2); EOSINOPHILS ABSOLUTE AUTO 0.12 K/mm3 (0.00-0.68); EOSINOPHILS PERCENT AUTO 2 % (0-6); Hematocrit 34.1 % (33.0-51.0); IMMATURE GRAN ABSOLUTE AUTO 0.04 K/mm3 (0.00-0.10); IMMATURE GRAN PERCENT AUTO 1 % (0-1); LYMPHOCYTES ABSOLUTE AUTO 1.07 K/mm3 (0.84-5.20); LYMPHOCYTES PERCENT AUTO 13 % (21-46); MONOCYTES ABSOLUTE AUTO 1.09 K/mm3 (0.16-1.47); MONOCYTES PERCENT AUTO 14 % (4-13); Mean Corpuscular HGB 28.6 pg (26.0-34.0); Mean Corpuscular HGB Conc 29.3 g/dL (31.5-36.5); Mean Corpuscular Volume 97 fL (80-100); Mean Platelet Volume 10.7 fL (9.1-12.4); NEUTROPHILS ABSOLUTE AUTO 5.67 K/mm3 (1.96-9.15); NEUTROPHILS PERCENT AUTO 70 % (41-73); NRBC ABSOLUTE 0.02 K/mm3 (0.00-0.02); NRBC Auto 0.2 /100 WBC (0.0-0.2); Platelet Count 248 K/mm3 (150-400); RDW Coefficient Variation 17.4 % (11.7-14.2); RDW Standard Deviation 61.8 fL (35.1-46.3); White Blood Cell Count 8.07 K/mm3 (4.00-11.30)
[2024-03-16 12:59] LABS: Albumin, Blood 2.7 g/dL (3.4-5.0); Albumin/Globulin Ratio 0.8 (0.8-1.8); Bilirubin, Total 0.5 mg/dL (0.1-1.0); Bun/Creatinine Ratio 15.3 (12.0-20.0); Calcium, Blood 8.3 mg/dL (8.5-10.1); Creatinine, Blood 1.24 mg/dL (0.40-1.00); Globulin, Blood 3.2 g/dL (2.2-4.0); Potassium, Blood 3.6 mmol/L (3.5-5.5); Total Protein, Blood 5.9 g/dL (6.4-8.2)
== END | disposition home or self-care (01) ==
LOC: LAB SHORT 12:42 → LAB 12:42
PROVIDERS: Physician Assistant
DX: R06.02 Shortness of breath (principal)
CPT/HCPCS: 80053; 83880; 85025; 85651

== ENCOUNTER → 2024-05-05 | Outpatient (CLI) | payer MEDICARE ==
[~2024-05-05] MED LIST changes: +Amlodipine Bes2.5 MG PO; +BREZTRI AEROS10.7 GM INH; +FURO20 PO; +LEVSOD150 PO; +LOSA25 PO; +Prozac20 MG PO
[2024-05-05 14:03] LABS: Hematocrit 38.6 % (33.0-51.0); Hemoglobin 11.5 g/dL (11.5-16.0); Mean Corpuscular HGB Conc 29.8 g/dL (31.5-36.5); Mean Corpuscular Volume 94 fL (80-100); NRBC ABSOLUTE 0.02 K/mm3 (0.00-0.02); NRBC Auto 0.1 /100 WBC (0.0-0.2); Platelet Count 290 K/mm3 (150-400); RDW Coefficient Variation 17.1 % (11.7-14.2); RDW Standard Deviation 57.2 fL (35.1-46.3); White Blood Cell Count 17.25 K/mm3 (4.00-11.30)
[2024-05-05 14:09] LABS: Albumin, Blood 3.1 g/dL (3.4-5.0); Albumin/Globulin Ratio 0.9 (0.8-1.8); Bilirubin, Total 0.6 mg/dL (0.1-1.0); Bun/Creatinine Ratio 20.2 (12.0-20.0); Calcium, Blood 8.8 mg/dL (8.5-10.1); Creatinine, Blood 1.14 mg/dL (0.40-1.00); Globulin, Blood 3.3 g/dL (2.2-4.0); Potassium, Blood 4.2 mmol/L (3.5-5.5); Total Protein, Blood 6.4 g/dL (6.4-8.2)
[2024-05-05 14:32] LABS: BAND PERCENT MAN 8 % (0-8); LYMPHOCYTES PERCENT MAN 2 % (21-46); MONOCYTES ABSOLUTE MAN 1.03 K/mm3 (0.16-1.47); MONOCYTES PERCENT MAN 6 % (4-13); NEUTROPHILS ABSOLUTE MAN 15.87 K/mm3 (1.96-9.15); SEG NEUTROPHILS PERCENT MAN 84 % (41-73)
[2024-05-05 14:34] LABS: LYMPHOCYTES % ATYPICAL MANUAL 0 % (0-0)
[2024-05-05 14:35] LABS: LYMPHOCYTES ABSOLUTE MAN 0.34 K/mm3 (0.84-5.20)
== END ==
LOC: LAB 13:54 → LAB SHORT 13:54
PROVIDERS: Physician Assistant Medical
DX: R10.30 Lower abdominal pain, unspecified (principal)
CPT/HCPCS: 80053; 85025

== ENCOUNTER 2024-05-08 10:11 | Inpatient (IN) | payer MEDICARE ==
[2024-05-08] VITALS (31 sets, daily range): BP systolic 81–119; BP diastolic 48–74
[~2024-05-08] VITALS: Ht 170.2 cm; Wt 70.6 kg
[~2024-05-08 10:11] MED LIST changes: -Amlodipine Bes2.5 MG PO; -BREZTRI AEROS10.7 GM INH; -FURO20 PO; -LEVSOD150 PO; -LOSA25 PO; -Prozac20 MG PO
[2024-05-08] MEDS ORDERED: Albuterol 2.5 MG/3 ML VIAL INH SCH (10:25)
[2024-05-08] MEDS ORDERED: CefTRIAXone Sodium 1,000 MG in NS 100 ML IV ONE (10:30)
[2024-05-08] MEDS ORDERED: Azithromycin 500 MG in NS 250 ML IV ONE (10:30)
[2024-05-08 10:32] LABS: Base Excess Venous 0.3 mmol/L; Bicarbonate Venous 23.3 mmol/L (24.0-30.0); PCO2 Venous 49.7 mmHg (38-42); pH Blood Venous 7.33 (7.34-7.37)
[2024-05-08 10:37] LABS: BASOPHILS ABSOLUTE AUTO 0.03 K/mm3 (0.00-0.23); BASOPHILS PERCENT AUTO 0 % (0-2); EOSINOPHILS ABSOLUTE AUTO 0.01 K/mm3 (0.00-0.68); EOSINOPHILS PERCENT AUTO 0 % (0-6); Hematocrit 35.2 % (33.0-51.0); Hemoglobin 10.6 g/dL (11.5-16.0); IMMATURE GRAN ABSOLUTE AUTO 0.06 K/mm3 (0.00-0.10); IMMATURE GRAN PERCENT AUTO 1 % (0-1); LYMPHOCYTES ABSOLUTE AUTO 0.44 K/mm3 (0.84-5.20); LYMPHOCYTES PERCENT AUTO 4 % (21-46); MONOCYTES ABSOLUTE AUTO 0.15 K/mm3 (0.16-1.47); MONOCYTES PERCENT AUTO 1 % (4-13); Mean Corpuscular HGB 27.7 pg (26.0-34.0); Mean Corpuscular HGB Conc 30.1 g/dL (31.5-36.5); Mean Corpuscular Volume 92 fL (80-100); Mean Platelet Volume 12.7 fL (9.1-12.4); NEUTROPHILS ABSOLUTE AUTO 10.82 K/mm3 (1.96-9.15); NEUTROPHILS PERCENT AUTO 94 % (41-73); NRBC ABSOLUTE 0.03 K/mm3 (0.00-0.02); NRBC Auto 0.3 /100 WBC (0.0-0.2); Platelet Count 247 K/mm3 (150-400); RDW Coefficient Variation 17.1 % (11.7-14.2); RDW Standard Deviation 57.1 fL (35.1-46.3); Red Blood Cell Count 3.82 M/mm3 (3.80-5.20); White Blood Cell Count 11.51 K/mm3 (4.00-11.30)
[2024-05-08] MEDS ORDERED: Acetaminophen 500 MG Tab PO ONE (11:00)
[2024-05-08 11:05] LABS: Albumin, Blood 2.3 g/dL (3.4-5.0); Albumin/Globulin Ratio 0.6 (0.8-1.8); Bilirubin, Total 0.6 mg/dL (0.1-1.0); Bun/Creatinine Ratio 26.5 (12.0-20.0); Calcium, Blood 8.5 mg/dL (8.5-10.1); Creatinine, Blood 2.04 mg/dL (0.40-1.00); Globulin, Blood 3.9 g/dL (2.2-4.0); Potassium, Blood 4.2 mmol/L (3.5-5.5); Total Protein, Blood 6.2 g/dL (6.4-8.2)
[2024-05-08] MEDS ORDERED: NS 1,000 ML IV SCH ×4 (11:15→17:00)
[2024-05-08] MEDS ORDERED: FLU VACC TS2024-25(6MOS UP)/PF 45 MCG/0.5 ML SYRINGE IM SCH (12:25)
[2024-05-08] MEDS ORDERED: Ipratropium/Albuterol SulF 2.5-0.5MG/3 ML Amp INH SCH (12:30)
[2024-05-08] MEDS ORDERED: Acetaminophen 325 MG TABLET PO PRN (12:30)
[2024-05-08] MEDS ORDERED: MethylPREDNISolone Sod Succ 125 MG Vial IV SCH ×2 (13:00→18:00)
[2024-05-08] MEDS ORDERED: Piperacillin/Tazobactam Sod 3.375 GM in NS 100 ML IV SCH ×2 (13:00→19:00)
[2024-05-08] MEDS ORDERED: Amlodipine Bes2.5 MG PO (15:29)
[2024-05-08] MEDS ORDERED: FURO20 PO (15:32)
[2024-05-08] MEDS ORDERED: Prozac20 MG PO (15:32)
[2024-05-08] MEDS ORDERED: IBUP800 PO (15:34)
[2024-05-08] MEDS ORDERED: LEVSOD150 PO (15:35)
[2024-05-08] MEDS ORDERED: LOSA25 PO (15:35)
[2024-05-08] MEDS ORDERED: PANT40 PO (15:37)
[2024-05-08] MEDS ORDERED: BREZTRI AEROS10.7 GM INH (15:40)
[2024-05-08] MEDS ORDERED: Albumin (Human) 25gm/100ml 100 ML IV SCH (16:15)
--- NOTE | 2024-05-08 18:42 | NUR ---
SUMMARY PT ADMITTED TO ICU 12 AT 1417. PT WAS DROWSY UPON ARRIVAL AND REQUIRING 12L OXYMIZER. PLACED PT ON BIPAP FOR A SHORT WHILE AFTER DR. POSADAS ASSESSED PT. NOW PT IS AWAKE A/O TO PERSON, PLACE, AND TIME. USING CALL LIGHT. DENIES ABD PAIN. TOLERATING WATER. DR. POSADAS OK'D PT TO HAVE A DINNER TRAY. HYPOTENSIVE ON ARRIVAL. IVF STARTED AND GETTING ALBUMIN WITH GOOD RESULTS. NO SIGN OF DISTRESS.
[2024-05-08] MEDS ORDERED: TraZODone HCl 100 MG Tab PO PRN (21:10)
[2024-05-08] MEDS ORDERED: NS 250 ML IV PRN (21:30)
--- NOTE | 2024-05-08 22:02 | NUR ---
ASSUMED CARE ASSUMED CARE AT 1900. PT A/O X 4. FOLLOWS DIRECTIONS AND MOVES ALL EXTREMITIES. DENIES CHEST OR ABD PAIN AT REST. WITH PALPITATION PT STATES PAIN TO LLQ. NS AT 125ML/HR. VSS. BP SOFT AT TIMES. SR RATE 90'S. ON 13L VIA OXYMIZER WHEN AWAKE AND BIPAP 14/8 40% WHEN ASLEEP. ABLE TO TOLERATE 50% OF DINNER. PUREWICK IN PLACE. PT ASKING FOR TRAZODONE TO HELP HER SLEEP. CALL TO TO VERIFY DOSE. PT/ STATE THAT AT PREVIOUS DR VISIT PT UNABLE TO STAY ASLEEP, DR SAID TO TAKE 100MG AND THEN WHEN SHE WAKES UP IN THE NIGHT TO TAKE ANOTHER 100MG. VERBAL ORDER FROM DR POSADAS. PT BP THEN SOFT SO DOSE HELD AT THIS TIME. CALL LIGHT IN REACH.
[2024-05-09] VITALS (26 sets, daily range): BP systolic 106–172; BP diastolic 57–115
[2024-05-09 03:41] LABS: Hematocrit 28.5 % (33.0-51.0); Hemoglobin 8.2 g/dL (11.5-16.0); Mean Corpuscular HGB Conc 28.8 g/dL (31.5-36.5); Mean Corpuscular Volume 94 fL (80-100); Mean Platelet Volume 10.1 fL (9.1-12.4); NRBC ABSOLUTE 0.03 K/mm3 (0.00-0.02); NRBC Auto 0.2 /100 WBC (0.0-0.2); Platelet Count 154 K/mm3 (150-400); RDW Standard Deviation 57.1 fL (35.1-46.3); Red Blood Cell Count 3.04 M/mm3 (3.80-5.20); White Blood Cell Count 12.51 K/mm3 (4.00-11.30)
[2024-05-09] MEDS ORDERED: FentaNYL Citrate 50 MCG/ML 2 ML Injection IV PRN (03:50)
[2024-05-09 04:00] LABS: Bun/Creatinine Ratio 27.2 (12.0-20.0); Creatinine, Blood 1.84 mg/dL (0.40-1.00); Potassium, Blood 4.3 mmol/L (3.5-5.5)
--- NOTE | 2024-05-09 06:13 | NUR ---
SHIFT SUMMARY NO ACUTE EVENTS T/O NIGHT. PT A/O X 4. ABLE TO TOLERATE BIPAP WHEN ASLEEP AND 13L VIA OXYMIZER WHEN AWAKE. TO BRING IN HOME BIPAP TODAY. NS AT 125 ML/HR. VSS, SR 90'S. C/O OF 8 ABD PAIN THIS AM. CALL TO HOSP AND ORDER RECEIVED. PT MEDICATED WITH 25MCG FENTANYL WITH GOOD EFFECTS. PURE WICK CHANGED AND BACK IN PLACE. CALL LIGHT IN REACH. WILL REPORT OFF TO ONCOMING RN.
--- NOTE | 2024-05-09 07:15 | NUR ---
ASSUMED CARE OF THE PT PT IS A&OX4, AND SHE IS ABLE TO MAKE HER NEEDS KNOWN. SHE IS ON THE OXYMIZER 8L AND SP02 >93%. RT IN THE ROOM AT THIS TIME. ON TELE THE PT IS SR 70'S, BP HYPERTENISIVE. THE PT HAS NS INFUSING AT 125ML/HR AND A KVO. SHE IS C/O RLQ PAIN, BUT STATES IT IS BETTER THEN WHEN SHE CAME IN. SEE NOTES FOR UPDATES.
[2024-05-09] MEDS ORDERED: Levothyroxine Sodium 100 MCG Vial IV SCH (08:00)
[2024-05-09] MEDS ORDERED: Enoxaparin 30 MG/0.3 ML SYR SC SCH (09:00)
[2024-05-09] MEDS ORDERED: NS 1,000 ML IV SCH (09:05)
[2024-05-09] MEDS ORDERED: Polyethylene Glycol 3350 17 gm PO SCH (10:15)
--- NOTE | 2024-05-09 11:16 | NUR ---
AFTERNOON UPDATE THE PT WAS EATING BREAKFAST ON THE 8L OXYMIZER AND DESATURATED TO 84%. SHE WAS TURNED UP TO 12L WHILE EATING TO MAINTAIN SP02 >90%. SHE WAS ABLE TO BE TITRAITED BACK DOWN TO 8L OXYMIZER AFTER BREAKFAST. ABOUT 1030 WE WERE ATTEMPTING TO GET THE PT OOB TO TRY AND USE THE BSC. SHE TOOK ABOUT ONE STEP AND HER HR JUMPED UP TO 130'S AND HE OXYGEN DROPPED. WE DID NOT GET AN ACCURATE READING. SHE WAS PLACED ON THE BIPAP 14/8 @ 40% TO HELP RECOVER. THE PT'S HR HAS STARTED TRENDING BACK DOWN AND IS CURRENTLY LOW 100'S. THE PT DENIES SOB, SP02 >97%. SHE IS ATTEMPTING THE BED TOPETE AND WILL REMAIN ON THE BIPAP WHILE WE ARE ROLLING HER IN BED SO SHE HAS MORE TIME TO RECOVER. PALLIATIVE CARE IS COMING TO MEET WITH THE PT AND THE PT'S TO HAVE A MORE IN-DEPTH CONVERSATION ABOUT HER CODE STATUS AND POLST. SEE NOTES FOR UPDATES. RECOVER
[2024-05-09] MEDS ORDERED: Hydrocortisone Sod Succinate 100 MG Vial IV SCH (12:00)
--- NOTE | 2024-05-09 14:53 | NUR ---
I CALLED DR. GONZALEZ BECAUSE THE PT CONTINUES TO HAVE HYPERTENSION AND WE D/C'D THE IV FLUIDS. SEE NOTES FOR UPDATES.
--- NOTE | 2024-05-09 18:06 | NUR ---
END OF SHIFT SUMMAY THE PT REMAINS A&OX4, CALLING APPROPRAITELY, AND MAKING HER NEEDS KNOWN. SHE IS BEDREST D/T FRAGILITY OF LUNGS. SEE PREVIOUS NOTES FOR DETAILS. THE PT NEEDS TO BE ENCOURAGED TO MOVE HER HIPS IN BED, AND IS HESITANT TO DO IT D/T ABD. SHE STATES HER ABD HURTS WORSE WHEN SHE IS MOVING AROUND. SHE WAS MEDICATED OT W/ FENTANYL PER EMAR FOR 8/10 ABD PAIN. THE PT IS ABLE TO REST COMFORTABLY. SHE IS CURRENTLY ON 8L OXYMIZER AND HAS BEEN TITRAITED BETWEEN 8L-13L BECAUSE OF DESATING WHILE EATING OR MOVING. SHE WAS ONLY PLACED ON THE BIPAP ONCE TODAY WHEN WE TRIALED GETTING OOB, SEE PREVIOUS NOTES FOR DETAILS. ON TELE THE PT IS SR/ST 90'S-110'S. HER BP IS STABLE BUT STILL HYPERTENSIVE AFTER STOPPING THE IV FLUIDS TODAY. SOME IMPROVMENT. SHE HAS A PURWICK SET UP TO SUCTION. IT WAS CHANGED THIS SHIFT. HER AND THE HAD A CONVERSATION WITH PALLIATIVE CARE TODAY AND THE PT WISHES TO BE A DNR. THE DNR BAND WAS PLACED ON HER LEFT WRIST W/ SINA RN A SECOND NURSE VERIFING. THE PT DISCUSSED W/ PALLIATIVE CARE THAT SHE WOULD BE INTRESTED IN HAVING SOMEONE COME OUT TO HER HOUSE AFTER SHE DISCHARGES TO TALK ABOUT HOSPICE. PALLIATIVE TO SET IT UP. SEE NOTES FOR ANY UPDATES.
--- NOTE | 2024-05-09 20:54 | NUR ---
ASSUMED CARE PT IS A&O X4; SPO2 >92% ON 9LNC; MAP >65. PT RESTING QUIETLY AT THIS TIME. HAS HAD FREQUENT EPISODES OF LIQUID THEN LOOSE BM'S; PT STATES HAS NOT HAD BM IN DAYS. PUREWICK IN PLACE.
--- NOTE | 2024-05-09 21:55 | NUR ---
UPDATE ABDOMINAL PAIN RESOLVED AT BEGINNING OF SHIFT, BUT HAS RETURNED. TREATED PER EMAR. PT RESTING QUIETLY/SLEEPING W/ BIPAP ON AT THIS TIME.
[2024-05-10] VITALS (10 sets, daily range): BP systolic 145–211; BP diastolic 82–115
[2024-05-10 03:51] LABS: BASOPHILS ABSOLUTE AUTO 0.03 K/mm3 (0.00-0.23); BASOPHILS PERCENT AUTO 0 % (0-2); EOSINOPHILS ABSOLUTE AUTO 0.19 K/mm3 (0.00-0.68); EOSINOPHILS PERCENT AUTO 1 % (0-6); Hematocrit 29.9 % (33.0-51.0); Hemoglobin 8.9 g/dL (11.5-16.0); IMMATURE GRAN ABSOLUTE AUTO 0.17 K/mm3 (0.00-0.10); IMMATURE GRAN PERCENT AUTO 1 % (0-1); LYMPHOCYTES ABSOLUTE AUTO 0.39 K/mm3 (0.84-5.20); LYMPHOCYTES PERCENT AUTO 2 % (21-46); MONOCYTES ABSOLUTE AUTO 0.78 K/mm3 (0.16-1.47); MONOCYTES PERCENT AUTO 4 % (4-13); Mean Corpuscular HGB 27.2 pg (26.0-34.0); Mean Corpuscular HGB Conc 29.8 g/dL (31.5-36.5); Mean Corpuscular Volume 91 fL (80-100); Mean Platelet Volume 11.3 fL (9.1-12.4); NEUTROPHILS ABSOLUTE AUTO 16.11 K/mm3 (1.96-9.15); NEUTROPHILS PERCENT AUTO 91 % (41-73); NRBC ABSOLUTE 0.11 K/mm3 (0.00-0.02); NRBC Auto 0.6 /100 WBC (0.0-0.2); Platelet Count 213 K/mm3 (150-400); RDW Coefficient Variation 16.9 % (11.7-14.2); RDW Standard Deviation 56.1 fL (35.1-46.3); Red Blood Cell Count 3.27 M/mm3 (3.80-5.20); White Blood Cell Count 17.67 K/mm3 (4.00-11.30)
[2024-05-10 04:05] LABS: Albumin, Blood 2.7 g/dL (3.4-5.0); Anion Gap 11 mmol/L (3-11); Blood Urea Nitrogen 43 mg/dL (8-24); Bun/Creatinine Ratio 29.1 (12.0-20.0); CO2, Blood 21 mmol/L (21-32); Calcium, Blood 8.6 mg/dL (8.5-10.1); Chloride, Blood 116 mmol/L (98-108); Creatinine, Blood 1.48 mg/dL (0.40-1.00); Glomerular Filtration Rate 38 (60-); Glucose, Blood 139 mg/dL (70-99); Phosphorus, Blood 3.5 mg/dL (2.5-4.9); Potassium, Blood 3.8 mmol/L (3.5-5.5); Sodium, Blood 144 mmol/L (136-145)
[2024-05-10] MEDS ORDERED: AmLODIPine Besylate 5 MG Tab PO SCH (04:20)
--- NOTE | 2024-05-10 05:24 | NUR ---
PT HAD FREQUENT BOWEL MOVEMENTS T/O NIGHT; PT COMPLAINED OF 8/10 LLQ PAIN TWICE TONIGHT AND MANAGED WELL PER EMAR. BM'S ARE INCONTINENT AND LOOSE OR LIQUID, BROWN, AND LARGE. PT ON BIPAP WHILE SLEEPING TONIGHT. DR CAMERON NOTIFIED OF PT'S HIGH BLOOD PRESSURE W/ HOME NORVASC ORDERED AND GIVEN; PRESSURES CONTINUE TO BE HIGH 160-180~ DR CAMERON AWARE W/ ORDERS TO MONITOR AT THIS TIME. NO OTHER ACUTE EVENTS THIS EVENING.
[2024-05-10] MEDS ORDERED: HYDROmorphone HCl/Pf 1MG SYR IV PRN (10:00)
[2024-05-10] MEDS ORDERED: HydrALAZINE HCl 20 MG / ML 1ML Vial IV PRN (10:40)
[2024-05-10] MEDS ORDERED: Hydrocortisone Sod Succinate 100 MG Vial IV SCH (16:00)
--- NOTE | 2024-05-10 18:05 | NUR ---
DAY SHIFT SUMMARY PT HAS BEEN ALERT AND ORIENTED THIS SHIFT COMMUNICATING APPROPRIATELY W STAFF. PT MAINTAINING SPO2 >92% ON 8L HIGH FLOW NC THIS SHIFT BUT DID REQUIRE ADDITIONAL O2 WHEN MOVING IN BED SHE BECAME VERY SOB W MINIMAL EXERTION. PT HAD MULTIPLE BM'S THIS AM AND AFTER SHE ATE BREAKFAST HER ABDOMEN WHICH WAS ALREADY NOTED TO BE DISTENDED WAS CAUSEING HER MORE PAIN W SEVERE CRAMPING. PROVIDER CONTACTED AND PAIN MEDICATIONS WERE CHANGED W GOOD RELIEF. PT'S DIET CHANGED TO CLEAR LIQUIDS AFTER BREAKFAST WHICH SHIE HAS TOLERATED WELL. PT'S BP ELEVATED THIS SHIFT AND RECIEVED ONE DOSE IV HYDRALAZINE. PT'S MONITOR SHOWING ST MOST OF THE SHIFT W HR IN THE 100'S THIS AM BUT INCREASING TO THE 110'S LATER IN THE SHIFT. PROVIDER AWARE OF CHANGES AND DR. LYNN SEEING PT AT BEDSIDE. DR. LYNN ORDERING C-DIFF TESTING HOWEVER, DESPITE MULTIPLE BM'S THIS AM THE PT HAS NOT HAD A BM SINCE THE TEST WAS ORDERED. WILL REPORT TO ONCOMING RN.
--- NOTE | 2024-05-10 21:22 | NUR ---
ASSUMED CARE PT IS A&O X4; SPO2 >92% ON BIPAP RESTING QUIETLY/SLEEPING; MAP >65 W/ SBP <160. PT COMPLAINING OF LLQ PAIN AT BEGINNING OF SHIFT AND TREATED PER EMAR. PT HAD AUDIBLE WHEEZING AT BEGINING OF SHIFT W/ MARKED IMPROVEMENT AFTER TREATMENT FROM RT.
[2024-05-11] VITALS (13 sets, daily range): BP systolic 132–175; BP diastolic 72–101
[2024-05-11 03:48] LABS: BASOPHILS ABSOLUTE AUTO 0.03 K/mm3 (0.00-0.23); BASOPHILS PERCENT AUTO 0 % (0-2); EOSINOPHILS PERCENT AUTO 0 % (0-6); Hemoglobin 9.7 g/dL (11.5-16.0); IMMATURE GRAN ABSOLUTE AUTO 0.41 K/mm3 (0.00-0.10); IMMATURE GRAN PERCENT AUTO 3 % (0-1); LYMPHOCYTES ABSOLUTE AUTO 0.51 K/mm3 (0.84-5.20); LYMPHOCYTES PERCENT AUTO 3 % (21-46); MONOCYTES ABSOLUTE AUTO 0.68 K/mm3 (0.16-1.47); MONOCYTES PERCENT AUTO 4 % (4-13); Mean Corpuscular HGB 26.9 pg (26.0-34.0); Mean Corpuscular HGB Conc 29.4 g/dL (31.5-36.5); Mean Corpuscular Volume 91 fL (80-100); Mean Platelet Volume 11.3 fL (9.1-12.4); NEUTROPHILS ABSOLUTE AUTO 14.39 K/mm3 (1.96-9.15); NEUTROPHILS PERCENT AUTO 90 % (41-73); NRBC Auto 0.6 /100 WBC (0.0-0.2); Platelet Count 240 K/mm3 (150-400); RDW Coefficient Variation 17.2 % (11.7-14.2); RDW Standard Deviation 56.8 fL (35.1-46.3); Red Blood Cell Count 3.61 M/mm3 (3.80-5.20); White Blood Cell Count 16.02 K/mm3 (4.00-11.30)
[2024-05-11 04:59] LABS: Albumin, Blood 2.6 g/dL (3.4-5.0); Blood Urea Nitrogen 37 mg/dL (8-24); Bun/Creatinine Ratio 31.9 (12.0-20.0); CO2, Blood 21 mmol/L (21-32); Creatinine, Blood 1.16 mg/dL (0.40-1.00); Glomerular Filtration Rate 51 (60-); Glucose, Blood 112 mg/dL (70-99); Phosphorus, Blood 2.7 mg/dL (2.5-4.9)
[2024-05-11 05:24] LABS: Anion Gap 14 mmol/L (3-11); Chloride, Blood 116 mmol/L (98-108); Sodium, Blood 147 mmol/L (136-145)
--- NOTE | 2024-05-11 05:53 | NUR ---
SHIFT SUMMARY PT RESTED QUIETLY/SLEPT T/O MOST OF NIGHT. CONTINUES TO COMPLAIN OF PAIN LLQ WHICH IS MANAGED WELL PER EMAR PER PT. NO BM'S LAST NIGHT. PT ON BIPAP WHILE SLEEPING. NO ACUTE EVENTS. CONTINUES TO BE A&O X4. BP TREATED W/ HYDRALAZINE ONCE TONIGHT.
--- NOTE | 2024-05-11 10:17 | NUR ---
Sprirtual Care Visit. Pt. is awake in bed wearing a bi-pap when she welcomes my visit. Pt. is pleasant and recognizes this warehouse coordinator from previous visits and the communoty. Rapport is re-established. Pt. displays evidence of clear thinking and verbalizes concern about how her spouse can be supported at home. Listen with empathy and a calming presence. Pt. verbalizes an expectation that her spouse will be visiting today. Prayed with Pt. and will remain aailable to the Pt. and family.
[2024-05-11] MEDS ORDERED: D5W-1/2NS 1,000 ML IV SCH (10:25)
[2024-05-11 12:18] LABS: C DIFFICILE DNA NEGATIVE (Negative)
[2024-05-11] MEDS ORDERED: Hydrocortisone Sod Succinate 100 MG Vial IV SCH (16:00)
--- NOTE | 2024-05-11 17:51 | NUR ---
SHIFT SUMMARY PT IS A&OX4, LYING IN BED WITH BIPAP IN PLACE. 14/8/40% WITH SATS IN THE 90'S. C/O SOB INTERMITTENTLY T/O THIS SHIFT, HOB ELEVATED W/ RELIEF. MEDICATED PER EMAR WITH RELIEF FOR ABD PAIN AND CRAMPING. PT HAS HAD SOME EPISODES OF INCONTINENCE OF URINE AND STOOL T/O THE SHIFT, ENCOURAGED TO CALL FOR ASSISTANCE TO GET ON BEDPAN. NEW IV PLACED IN R FOREARM, CURRENTLY INFUSING. PT HAS HAD NO ACUTE EVENTS THIS SHIFT.
--- NOTE | 2024-05-11 21:28 | NUR ---
ASSUMED CARE AT APPROX 1900 PATIENT IS ALERT AND ORIENTED X4, FOLLOWS COMMANDS. SP02 97% ON 10L VIA OXYMIZER, BIPAP WITH ANY ACTIVITY AND WHILE SLEEPING 14/8 40%, RR 12. HR ST 110-130, BP STABLE. PATIENT COMPLAINING OF 10/10 ABDOMINAL PAIN, MEDICATING PER EMAR. ENCOURAGED REPOSITIONING. ATTENDS CHANGED AND PUREWICK IN PLACE. PATIENT ATTEMPTED TO HAVE BM ON BEDPAN. MINIMAL ASSIST WITH REPOSITIONING. CALL LIGHT IN REACH
[2024-05-12 00:06] VITALS: BP 143/75
[2024-05-12 03:48] LABS: Hematocrit 30.9 % (33.0-51.0); Hemoglobin 9.1 g/dL (11.5-16.0); Mean Corpuscular HGB 27.1 pg (26.0-34.0); Mean Corpuscular HGB Conc 29.4 g/dL (31.5-36.5); Mean Corpuscular Volume 92 fL (80-100); Mean Platelet Volume 9.7 fL (9.1-12.4); NRBC ABSOLUTE 0.04 K/mm3 (0.00-0.02); NRBC Auto 0.2 /100 WBC (0.0-0.2); Platelet Count 207 K/mm3 (150-400); RDW Coefficient Variation 17.1 % (11.7-14.2); RDW Standard Deviation 57.2 fL (35.1-46.3); Red Blood Cell Count 3.36 M/mm3 (3.80-5.20); White Blood Cell Count 18.08 K/mm3 (4.00-11.30)
[2024-05-12 04:06] LABS: Albumin, Blood 2.5 g/dL (3.4-5.0); Albumin/Globulin Ratio 0.8 (0.8-1.8); Bilirubin, Total 0.4 mg/dL (0.1-1.0); Bun/Creatinine Ratio 26.4 (12.0-20.0); Calcium, Blood 8.8 mg/dL (8.5-10.1); Creatinine, Blood 1.1 mg/dL (0.40-1.00); Magnesium, Blood 1.9 mg/dL (1.6-2.4); Phosphorus, Blood 2.3 mg/dL (2.5-4.9); Potassium, Blood 3.8 mmol/L (3.5-5.5); Total Protein, Blood 5.5 g/dL (6.4-8.2)
[2024-05-12 04:07] LABS: BAND PERCENT MAN 1 % (0-8); BASOPHILS PERCENT MAN 0 % (0-2); EOSINOPHILS PERCENT MAN 0 % (0-6); LYMPHOCYTES ABSOLUTE MAN 0.54 K/mm3 (0.84-5.20); LYMPHOCYTES PERCENT MAN 3 % (21-46); METAMYELOCYTE ABSOLUTE MAN 0.36 K/mm3 (0.00-0.00); METAMYELOCYTE PERCENT MAN 2 % (0-0); MONOCYTES ABSOLUTE MAN 0.72 K/mm3 (0.16-1.47); MONOCYTES PERCENT MAN 4 % (4-13); NEUTROPHILS ABSOLUTE MAN 16.45 K/mm3 (1.96-9.15); SEG NEUTROPHILS PERCENT MAN 90 % (41-73); TOTAL CELLS COUNTED 100
[2024-05-12] MEDS ORDERED: Potassium Phosphate Dibasic 15 MM in Dextrose 5% 250 ML IV STA (04:23)
[2024-05-12 05:26] VITALS: BP 164/90
--- NOTE | 2024-05-12 05:49 | NUR ---
SHIFT SUMMARY PATIENT ALERT AND ORIENTED X4. SP02 98% ON 10L VIA OXYMIZER. PATIENT WORE BIPAP WHILE SLEEPING, LS COARSE AND DIFFICULTY BREATHING WITH ACTIVITY OR LAYING FLAT. FLUIDS DC'd PER HOSPITALIST. PUREWICK IN PLACE, MINIMAL URINE OUTPUT THIS SHIFT. PATIENT CALLING APPROPRIATELY FOR BEDPAN AND REPOSITIONING SELF. MEDICATED FOR ABDOMINAL PAIN PER EMAR, STILL REPORTS 10/10 PAIN AT TIMES. CALL LIGHT IN REACH
[2024-05-12] MEDS ORDERED: Levothyroxine Sodium 0.15 MG Tab PO SCH (06:00)
[2024-05-12] MEDS ORDERED: Dextrose 5% 1,000 ML IV SCH (06:35)
[2024-05-12 08:00] VITALS: BP 154/95
[2024-05-12] MEDS ORDERED: Hydrocortisone Sod Succinate 100 MG Vial IV SCH (09:00)
[2024-05-12] MEDS ORDERED: Enoxaparin 40 MG/0.4 ML SYR SC SCH (09:00)
--- NOTE | 2024-05-12 11:00 | NUR ---
Spiritual Care Visit. Pt. is awake in bed and welcomes my visit. Rapport is quickly re-established as this slumber room attendant has seen this Pt. on other haopitalizations. Facilitated a health update. Listened with empathy and interest. Pt. displayed evidence of clear thinking and engagement. Pt. verbalized her marlys with measured words of hope. Pastoral Care is given as matters of hope and marlys are considered. Prayed with Pt. Pt. verbalized gratitude for the spiritual care visit.
--- NOTE | 2024-05-12 11:44 | NUR ---
AM NOTE... ASSUMED CARE OF PT AT 0700, PT IS A&Ox4. PT IS ON 10L OXYMIZER WITH O2 SATS>95% L/S CLEAR T/O DIM IN THE BASES. PT IS IN SR/ST BP STABLE. PT HAS GENERALIZED EDEMA. BT PRESENT AND HYPOACTIVE, ABD SLIGHTLY FIRM TO PALPATION. PURWICK IS IN PLACE, PURWICK WAS CHANGED AROUND 1000 BY THIS RN. PT WAS MEDICATED FOR ABD PAIN PER EMAR WITH GOOD RESULTS. WILL CONTINUE TO MONITOR.
[2024-05-12 12:00] VITALS: BP 152/86
--- NOTE | 2024-05-12 12:30 | NUR ---
Spouse of Pt. waved me into the room and welcomed my visit. Spouse is known to this log tumbler from previous hospital visits. Facilitated a life review and also sought to normalize the Pts. hospital experience. Spouse displayed evidence of being encouraged, and Pt. displayed evidence of being engaged and hungry. Both spouse and Pt. verbalized gratitude for the spiritual care visits.
--- NOTE | 2024-05-12 12:46 | NUR ---
Patient and requested to meet with palliative care to review POLST choices. Once they understood that CPR without intubation isn't possible, they decided on DNR. We also discussed hospice, and the patient verbalized interest in a hospice eval once she returns home. Loading Rack Supervisor aware, will make that arrangement.
[2024-05-12 17:20] VITALS: BP 145/86
--- NOTE | 2024-05-12 18:04 | NUR ---
SHIFT SUMMARY... PT WENT TO CT FOR CT OF ABD/PELVIS, PER THOSE RESULTS DR. LYNN CAME TO THE BEDSIDE TO UPDATE THE PT. NEW ORDERS FOR A PICC LINE, TPN AND BACK TO NPO WITH SIPS/CHIPS ONLY. PT'S VS STABLE T/O THIS SHIFT. PT HAS BEEN TITRATED DOWN FROM 10L NC TO 8LNC AND BIPAP FOR RESCUE BREATHING. PURWICK IN PLACE TO SUCTION CHANGED AT 1700. CALL LIGHT IN REACH WILL CONTINUE TO MONITOR UNTIL REPORT IS GIVEN TO ONCOMING RN.
[2024-05-12] MEDS ORDERED: [UNRECOGNIZED DRUG - NUTRITION] IV SCH (18:30)
[2024-05-12] MEDS ORDERED: Aa 4.25%/Calcium/Lytes/D5w 1,000 ML IV SCH (19:00)
[2024-05-12 20:37] VITALS: BP 131/85
[2024-05-13] VITALS (7 sets, daily range): BP systolic 125–166; BP diastolic 68–97
--- NOTE | 2024-05-13 06:07 | NUR ---
SHIFT SUMMARY PATIENT IS ALERT AND ORIENTED X4. SP02 97% ON 10L VIA OXYMIZER AND BIPAP WHILE SLEEPING 14/8, 40%. HR ST 114, BP STABLE, DENIES CP/PRESSURE. PUREWICK IN MOST THE NIGHT. PATIENT HAD LARGE SOFT/LIQUID BM THAT CONTINUED, RECTAL TUBE PLACE. MEDICATED FOR ABDOMINAL PAIN PER EMAR. PATIENT ABLE TO REPOSITION SELF. PPN REMAINS INFUSING. CALL LIGHT IN REACH
--- NOTE | 2024-05-13 07:49 | NUR ---
AM NOTE... ASSUMED CARE OF PT AT 0700, PT IS A&Ox4. PT IS IN SINUS TACH IN THE 110'S-120'S BP IS HYPERTENSIVE WITH SBPs IN THE 160'S, PT WAS MEDICATED PER EMAR. PT IS ON 10L OXYMIZER WITH O2 SATS>95% L/S COARSE T/O DIM IN THE BASES WITH EXP WHEEZES IN THE UPPER/MID LOBES. BT PRESENT AND HYPOACTIVE, ABD IS SLIGHTLY FIRM AND TENDER TO PALPATION. RECTAL TUBE IS IN PLACE AND DRAINING TO GRAVITY. PURWICK IN PLACE SET TO LIS. WILL CONTINUE TO MONITOR
[2024-05-13 08:16] LABS: BASOPHILS ABSOLUTE AUTO 0.04 K/mm3 (0.00-0.23); BASOPHILS PERCENT AUTO 0 % (0-2); EOSINOPHILS ABSOLUTE AUTO 0.01 K/mm3 (0.00-0.68); EOSINOPHILS PERCENT AUTO 0 % (0-6); Hematocrit 25.4 % (33.0-51.0); Hemoglobin 7.6 g/dL (11.5-16.0); IMMATURE GRAN ABSOLUTE AUTO 0.36 K/mm3 (0.00-0.10); IMMATURE GRAN PERCENT AUTO 2 % (0-1); LYMPHOCYTES ABSOLUTE AUTO 1.02 K/mm3 (0.84-5.20); LYMPHOCYTES PERCENT AUTO 6 % (21-46); MONOCYTES ABSOLUTE AUTO 0.79 K/mm3 (0.16-1.47); MONOCYTES PERCENT AUTO 4 % (4-13); Mean Corpuscular HGB 27.3 pg (26.0-34.0); Mean Corpuscular HGB Conc 29.9 g/dL (31.5-36.5); Mean Corpuscular Volume 91 fL (80-100); Mean Platelet Volume 9.8 fL (9.1-12.4); NEUTROPHILS PERCENT AUTO 88 % (41-73); NRBC ABSOLUTE 0.08 K/mm3 (0.00-0.02); NRBC Auto 0.4 /100 WBC (0.0-0.2); Platelet Count 205 K/mm3 (150-400); RDW Standard Deviation 56.6 fL (35.1-46.3); Red Blood Cell Count 2.78 M/mm3 (3.80-5.20); White Blood Cell Count 18.32 K/mm3 (4.00-11.30)
[2024-05-13 08:36] LABS: Albumin, Blood 2.1 g/dL (3.4-5.0); Albumin/Globulin Ratio 0.7 (0.8-1.8); Bilirubin, Total 0.3 mg/dL (0.1-1.0); Bun/Creatinine Ratio 44.7 (12.0-20.0); Calcium, Blood 8.4 mg/dL (8.5-10.1); Creatinine, Blood 0.83 mg/dL (0.40-1.00); Globulin, Blood 3.1 g/dL (2.2-4.0); Potassium, Blood 4.2 mmol/L (3.5-5.5); Total Protein, Blood 5.2 g/dL (6.4-8.2)
[2024-05-13] MEDS ORDERED: TPN Consult Notification XX ONE (11:15)
[2024-05-13 15:25] LABS: Influenza A, PCR NEGATIVE (NEGATIVE); Influenza B, PCR NEGATIVE (NEGATIVE); Resp Syncytial Virus, PCR NEGATIVE (NEGATIVE); SARS-Cov-2 (COVID-19) PCR, MMC NEGATIVE (NEGATIVE)
[2024-05-13] MEDS ORDERED: Parenteral Electolytes 40 ML,Potassium Phosphate Dibasic 30 MM,Multivitamins 10 ML,ZINC... IV SCH (17:00)
--- NOTE | 2024-05-13 17:13 | NUR ---
Spiritual Care Visit. Pt. is awke in bed and welcomes my visit. Pt. verbalizes a new next step in her plan of care. Pt. displays evidence of being encouraged by it. Pt. is alert aand engaged. Considered matters of marlys and belief. Assisted pt. by closing her window blinds. Prayed with Pt. Pt. verbalized gratitude for the spiritual care visit and welcomed this mortgage loan reviewer to return.
--- NOTE | 2024-05-13 18:44 | NUR ---
SHIFT SUMMARY: NEURO: PATIENT ALERT AND ORIENTED X4 WITH SOME MEMORY LOSS THAT PATIENT REPORTS STARTED WHEN SHE HAD HER STROKE. NO OTHER RESIDUAL EFFECTS NOTED THIS AFTERNOON. PATIENT ABLE TO MOVE ALL 4 EXTREMITIES. PATIENT REPORTS ABDOMINAL CRAMPING AND PAIN. PATIENT MEDICATED PER PRNS. GI/: PATIENT HAS A DISTENDED AND TENDER ABDOMEN. RECTAL TUBE IN PLACE DRAINING VERY DARK LIQUID STOOL. PER MORNING CHANGE HOUSE ATTENDANT AND DR. LYNN'S PROGRESS NOTE, DR. LNYN IS AWARE. PATIENT DENIED NAUSEA. PUREWICK IN PLACE DRAINING YELLOW URINE. RESPIRATORY: PATIENT STABLE ON 8L VIA OXYMIZER OR BIPAP 14/8/35% WITH SPO2 >92%. PATIENT REPORTS SHORTNESS OF BREATH WITH MINIMAL ACTIVITY. PATIENT AT TIMES REQUESTS BIPAP TO HELP HER RECOVER. NEBULIZER TREATMENTS ORDERED. CARDIAC: PATIENT'S HR REMAINED IN THE 110S. BLOOD PRESSURES STABLE WITH SBP IN THE 130S AND MAPS >65. PATIENT DENIED CHEST PAIN OR PRESSURE. PSYCHSOCIAL: PATIENT AND RELIEVED TO HEAR THAT THE PLAN WOULD START WITH A PELVIC DRAIN TOMORROW RATHER THAN BEING SHIPPED TO [facility] AND HAVING MAJOR SURGERY. PATIENT IS CALM AND COOPERATIVE. PATIENT EXPRESSED CONCERN AT TIMES ABOUT HER CURRENT CONDITION.
[2024-05-14] VITALS (19 sets, daily range): BP systolic 118–189; BP diastolic 63–91
[2024-05-14 04:27] LABS: BASOPHILS ABSOLUTE AUTO 0.04 K/mm3 (0.00-0.23); BASOPHILS PERCENT AUTO 0 % (0-2); EOSINOPHILS ABSOLUTE AUTO 0.15 K/mm3 (0.00-0.68); EOSINOPHILS PERCENT AUTO 1 % (0-6); Hematocrit 20.4 % (33.0-51.0); Hemoglobin 6.3 g/dL (11.5-16.0); IMMATURE GRAN ABSOLUTE AUTO 0.79 K/mm3 (0.00-0.10); IMMATURE GRAN PERCENT AUTO 4 % (0-1); LYMPHOCYTES ABSOLUTE AUTO 1.11 K/mm3 (0.84-5.20); LYMPHOCYTES PERCENT AUTO 5 % (21-46); MONOCYTES ABSOLUTE AUTO 1.09 K/mm3 (0.16-1.47); MONOCYTES PERCENT AUTO 5 % (4-13); Mean Corpuscular HGB 27.9 pg (26.0-34.0); Mean Corpuscular HGB Conc 30.9 g/dL (31.5-36.5); Mean Corpuscular Volume 90 fL (80-100); Mean Platelet Volume 9.8 fL (9.1-12.4); NEUTROPHILS ABSOLUTE AUTO 18.19 K/mm3 (1.96-9.15); NEUTROPHILS PERCENT AUTO 85 % (41-73); NRBC ABSOLUTE 0.34 K/mm3 (0.00-0.02); NRBC Auto 1.6 /100 WBC (0.0-0.2); Platelet Count 214 K/mm3 (150-400); RDW Coefficient Variation 17.4 % (11.7-14.2); RDW Standard Deviation 56.5 fL (35.1-46.3); Red Blood Cell Count 2.26 M/mm3 (3.80-5.20); White Blood Cell Count 21.37 K/mm3 (4.00-11.30)
[2024-05-14 04:46] LABS: Alanine Aminotransfer (ALT/SGP 20 U/L (12-78); Albumin/Globulin Ratio 0.7 (0.8-1.8); Alk Phos 83 U/L (50-136); Anion Gap 10 mmol/L (3-11); Aspartate Aminotrans (AST/SGOT 29 U/L (12-37); Bilirubin, Total 0.3 mg/dL (0.1-1.0); Blood Urea Nitrogen 44 mg/dL (8-24); Bun/Creatinine Ratio 56.9 (12.0-20.0); CO2, Blood 23 mmol/L (21-32); Calcium, Blood 8.3 mg/dL (8.5-10.1); Chloride, Blood 117 mmol/L (98-108); Creatinine, Blood 0.77 mg/dL (0.40-1.00); Glomerular Filtration Rate 83 (60-); Glucose, Blood 113 mg/dL (70-99); Magnesium, Blood 1.9 mg/dL (1.6-2.4); Phosphorus, Blood 3.1 mg/dL (2.5-4.9); Potassium, Blood 4.6 mmol/L (3.5-5.5); Sodium, Blood 145 mmol/L (136-145); Triglycerides 219 mg/dL (30-160)
[2024-05-14] MEDS ORDERED: HYDROmorphone HCl/Pf 1MG SYR IV PRN (05:25)
[2024-05-14 05:53] LABS: International Normalized Ratio 1.08; Prothrombin Time Results 11.5 Sec (9.7-11.5)
[2024-05-14] MEDS ORDERED: HYDROmorphone HCl/Pf 1MG SYR IV ONE (06:00)
--- NOTE | 2024-05-14 06:16 | NUR ---
SHIFT SUMMARY PATIENT ALERT AND ORIENTED X4, BEDREST AT THIS TIME. PATIENT DENIES SHORTNESS OF BREATH, WAS TITRATED DOWN TO 6 LITERS O2 VIA OXYMIZER WITH SPO2 >90%. PATIENT MEDICATED PER EMAR FOR PAIN. AROUND 0440, PATIENT STARTED COMPLAINING OF INCREASED PAIN AND WAS FEELING HOT AND FLUSHED, PATIENT'S PAIN MEDICATION WAS INEFFECTIVE AT THIS TIME. THIS RN CALLED DR URBINA TO NOTIFY HIM OF THIS AND THAT THE PATIENT'S HEMEGLOBIN HAD DROPPED TO 6.3 THIS MORNING, AND THAT THERE IS INCREASED BLACK COLORED OUTPUT IN HER RECTAL TUBE. DR URBINA CAME TO BEDSIDE TO ASSESS THE PATIENT AND OBTAINED INFORMED CONSENT FOR BLOOD TRANSFUSION. PATIENT REQUESTED FOR HER TO BE UPDATED ON THE SITUATION, THIS RN CALLED BUT WAS UNABLE TO GET A HOLD OF HIM. DR URBINA INPUT ORDERS FOR BLOOD TRANSFUSION AND INCREASE IN PAIN MEDICATION. WILL CONTINUE TO MONITOR. CALL LIGHT WITHIN REACH.
[2024-05-14] MEDS ORDERED: Pantoprazole Sodium 40 MG Injection IV SCH (07:00)
--- NOTE | 2024-05-14 09:40 | NUR ---
UPDATE: PLAN FOR DRAIN PLACEMENT APPROX 1230. FAMILY AWARE. PT HGB 6.3 THIS AM, 1 UNIT PRBC INFUSING NOW.
[2024-05-14] MEDS ORDERED: TPN Consult Notification XX ONE (10:25)
--- NOTE | 2024-05-14 10:46 | NUR ---
Spiritual Care Visit. At the personal invitation of the Pts. nephew this shoe fitter is welcomed to bedside. Pt. is awake but displays evidence of being groggy from her pain medication. While present, Palliative nurse Sofia introduces herself. Prayed with Pt. in anticipation of the procedure to drain an abcess. Family verbalized gratitude for the spiritual care visit.
[2024-05-14 12:38] LABS: BASOPHILS ABSOLUTE AUTO 0.09 K/mm3 (0.00-0.23); BASOPHILS PERCENT AUTO 0 % (0-2); EOSINOPHILS PERCENT AUTO 0 % (0-6); Hematocrit 30.9 % (33.0-51.0); Hemoglobin 10.1 g/dL (11.5-16.0); IMMATURE GRAN ABSOLUTE AUTO 0.78 K/mm3 (0.00-0.10); IMMATURE GRAN PERCENT AUTO 3 % (0-1); LYMPHOCYTES ABSOLUTE AUTO 0.93 K/mm3 (0.84-5.20); LYMPHOCYTES PERCENT AUTO 4 % (21-46); MONOCYTES ABSOLUTE AUTO 0.94 K/mm3 (0.16-1.47); MONOCYTES PERCENT AUTO 4 % (4-13); Mean Corpuscular HGB 28.9 pg (26.0-34.0); Mean Corpuscular HGB Conc 32.7 g/dL (31.5-36.5); Mean Corpuscular Volume 89 fL (80-100); NEUTROPHILS ABSOLUTE AUTO 23.63 K/mm3 (1.96-9.15); NEUTROPHILS PERCENT AUTO 89 % (41-73); NRBC ABSOLUTE 0.59 K/mm3 (0.00-0.02); NRBC Auto 2.2 /100 WBC (0.0-0.2); Platelet Count 306 K/mm3 (150-400); RDW Standard Deviation 50.6 fL (35.1-46.3); Red Blood Cell Count 3.49 M/mm3 (3.80-5.20); White Blood Cell Count 26.47 K/mm3 (4.00-11.30)
--- NOTE | 2024-05-14 12:46 | NUR ---
UPDATE: PT TO IMAGING FOR DRAIN PLACEMENT. VSS.
--- NOTE | 2024-05-14 12:57 | NUR ---
Pt to have drain tube placed today as pt continues to have fluid in abd from microperforation of bowel. Surgeon states the patient's health is too poor to for bowel repair at this time. Pt remains on 8L 02 as is her baseline. Pt's , niece and nephew are all at bedside this am. The pt is oriented to self this morning, unable to make decisions at this time. The patient would need to be transferred if family wanted to pursue anastamosis. However, the family stated they do not want her to transfer to [facility], would prefer more conservative effort of drain tube. Will continue to provide support.
[2024-05-14 13:03] LABS: International Normalized Ratio 1.03
--- NOTE | 2024-05-14 14:17 | NUR ---
Pt returned from drain placement, , niece and nephew at bedside. We had a long discussion regarding pt's current health status. She remains slightly confused, unable to redirect at this point. Dr. Slade has decided to continue with antibiotics until pt's daughter arrives, and family is in agreement with this. Will inform bedside RN.
--- NOTE | 2024-05-14 16:52 | NUR ---
SHIFT SUMMARY: PT ALERT AND ORIENTED X3-4, ABLE TO FOLLOW COMMANDS AND MAKE NEEDS KNOWN. FORGETFUL AT TIMES. STRENGTH WEAK, EQUAL BILATERALLY. BP STABLE. HR ST 120'S. AFEBRILE. SPO2 >94% ON 8L NC, PT STATES BASELINE. LUNG SOUNDS COARSE THROUGHOUT, RESP 22-24. ABD DISTENDED, BOWEL SOUNDS +, PAINFUL TO TOUCH. PT MEDICATED PER EMAR FOR PAIN THROUGHOUT THIS SHIFT. URESIL DRAIN PLACED THIS AM FOR PELVIC ABSCESS. PT TOLERATED WELL. HGB 6.3 THIS AM, 1 UNIT OF PRBC TRANFUSED. HGB NOW 10.4, REDRAW AT 1800. RECTAL TUBE REMAINS IN PLACE, DRAINING DARK STOOL TO GRAVITY. PUREWICK IN PLACE, APPROX 600ML OF YELLOW URINARY OUTPUT. FAMILY IN THROUGHOUT THIS SHIFT, UPDATED ON PT PLAN OF CARE. PLAN FOR PT DAUGHTER TO FLY IN FROM [place] 05/15/24, PLAN FOR PT TO TRANSITION TO COMFORT CARE ONCE DAUGHTER ARRIVES. PT DENIES NEEDS AT THIS TIME. BED IN LOW, CALL LIGHT IN REACH, WILL REPORT TO ONCOMING RN.
[2024-05-14] MEDS ORDERED: Parenteral Electolytes 40 ML,Potassium Phosphate Dibasic 30 MM,Multivitamins 10 ML,ZINC... IV SCH (17:00)
[2024-05-14 18:13] LABS: Hematocrit 28.1 % (33.0-51.0); Hemoglobin 9.2 g/dL (11.5-16.0)
[2024-05-15] VITALS: BP 151/94
[2024-05-15 04:00] VITALS: BP 151/92
[2024-05-15 04:19] LABS: Hematocrit 26.6 % (33.0-51.0); Hemoglobin 8.5 g/dL (11.5-16.0); Mean Corpuscular HGB 28.4 pg (26.0-34.0); Mean Corpuscular Volume 89 fL (80-100); Mean Platelet Volume 10.6 fL (9.1-12.4); NRBC ABSOLUTE 0.92 K/mm3 (0.00-0.02); NRBC Auto 2.6 /100 WBC (0.0-0.2); Platelet Count 243 K/mm3 (150-400); RDW Coefficient Variation 16.9 % (11.7-14.2); RDW Standard Deviation 54.2 fL (35.1-46.3); Red Blood Cell Count 2.99 M/mm3 (3.80-5.20); White Blood Cell Count 35.96 K/mm3 (4.00-11.30)
[2024-05-15 04:34] LABS: Bun/Creatinine Ratio 50.9 (12.0-20.0); Calcium, Blood 8.1 mg/dL (8.5-10.1); Creatinine, Blood 1.08 mg/dL (0.40-1.00); Phosphorus, Blood 4.4 mg/dL (2.5-4.9); Potassium, Blood 5.2 mmol/L (3.5-5.5)
[2024-05-15 04:47] LABS: BAND PERCENT MAN 8 % (0-8); BASOPHILS PERCENT MAN 0 % (0-2); EOSINOPHILS ABSOLUTE MAN 0.35 K/mm3 (0.00-0.68); EOSINOPHILS PERCENT MAN 1 % (0-6); LYMPHOCYTES ABSOLUTE MAN 1.43 K/mm3 (0.84-5.20); LYMPHOCYTES PERCENT MAN 4 % (21-46); METAMYELOCYTE ABSOLUTE MAN 0.71 K/mm3 (0.00-0.00); METAMYELOCYTE PERCENT MAN 2 % (0-0); MONOCYTES ABSOLUTE MAN 0.35 K/mm3 (0.16-1.47); MONOCYTES PERCENT MAN 1 % (4-13); MYELOCYTE ABSOLUTE MAN 0.35 K/mm3 (0.00-0.00); MYELOCYTE PERCENT MAN 1 % (0-0); NEUTROPHILS ABSOLUTE MAN 32.72 K/mm3 (1.96-9.15); SEG NEUTROPHILS PERCENT MAN 83 % (41-73); TOTAL CELLS COUNTED 100
--- NOTE | 2024-05-15 06:27 | NUR ---
SHIFT SUMMARY PATIENT ALERT AND ORIENTED X4. MEDICATED PER EMAR FOR PAIN. URESIL DRAIN IS PATENT AND PRODUCING BROWN COLORED OUTPUT. RECTAL TUBE CONTINUES TO PRODUCE BLACK COLORED OUTPUT. SHE IS BEDBOUND AT THIS TIME. VITAL SINGS STABLE, CONTINUES ON 8 LITERTS O2 VIA OXYMIZER. WILL CONTINUE TO MONITOR CALL LIGHT WTIHIN REACH.
[2024-05-15 07:17] VITALS: BP 152/85
[2024-05-15] MEDS ORDERED: Enoxaparin 40 MG/0.4 ML SYR SC SCH (09:00)
[2024-05-15] MEDS ORDERED: Scopolamine Hydrobromide Patch TOP PRN (15:00)
[2024-05-15] MEDS ORDERED: LORazepam 2 MG/ML 1ML Injection IV PRN (15:00)
[2024-05-15] MEDS ORDERED: LORazepam 1 MG Tab PO PRN (15:00)
[2024-05-15] MEDS ORDERED: Morphine Sulfate 10 MG/ML 1MLSYR IV PRN (15:00)
[2024-05-15] MEDS ORDERED: Acetaminophen 650 MG Supp PR PRN (15:00)
[2024-05-15] MEDS ORDERED: Promethazine HCl 25 MG Supp PR PRN (15:00)
[2024-05-15] MEDS ORDERED: Atropine Sulfate 1% Opth Soln 2ML BTL SL PRN (15:00)
[2024-05-15] MEDS ORDERED: Ondansetron HCl 2 MG / ML 2ML Vial IV PRN (15:00)
[2024-05-15] MEDS ORDERED: Morphine Sulfate 20 MG/1ML 1 ML Oral Syringe SL PRN (15:00)
--- NOTE | 2024-05-15 15:05 | NUR ---
Pt resting on non rebreather, Family had discussion with physician regarding prognosis and potential for suffering. Plan is to transition to comfort care and home with hospice if her oxygen demands will tolerate transfer. Comfort quilt placed and Put butterfly on her talke in her favorite color for diversion. Therputic time with pt and family. Will monitor air hunger and pt complex symptoms closely. Goal is dignity for Ofelia and her loving family.
--- NOTE | 2024-05-15 17:25 | NUR ---
UPDATE: COMFORT CARE ORDERS RECEIVED AT APPROX 1430. FAMILY AT BEDSIDE.
--- NOTE | 2024-05-15 17:47 | NUR ---
SHIFT SUMMARY: PT RESTING COMFORTABLY. TRANSITIONED TO COMFORT CARE APPROX 1500. MEDICATED FOR PAIN PER EMAR. REPOS Q2. JOSE CATHETER REMAINS IN PLACE. DAUGHTER AND AT BEDSIDE THROUGHOUT THE DAY. WILL REPORT TO ONCOMING RN.
[2024-05-15] MEDS ORDERED: Ipratropium/Albuterol SulF 2.5-0.5MG/3 ML Amp INH PRN (18:20)
--- NOTE | 2024-05-16 04:11 | NUR ---
SHIFT SUMMARY ROSARIO WAS ASLEEP AND APPEARED COMFORTABLE AT START OF SHIFT, RESPIRATIONS WERE <10/ MIN. MEDICATED PER EMAR FOR AIRHUNGER/COMFORT. PT RESPIRATIONS CHANGED AROUND 0120, PT FAMILY NOTIFIED PER REQUEST. PT PASSED SHORTLY AFTER AND TOD WAS CALLED @ 0135 BY 2 RN'S. PT FAMILY ARRIVED AFTER TO VIEW THE . BODY RELEASED TO [facility].
== END 2024-05-16 01:35 | DRG 871 ==
LOC: ER 10:11 → ICUE 12:22 → PCU 05-13 13:22
PROVIDERS: Emergency Medicine; Family Medicine; Hospitalist; Internal Medicine; Internal Medicine Critical Care Medicine; Student in an Organized Health Care Education/Training Program; Surgery; ADMIT Internal Medicine
PROC: 5A09357 Assistance with Respiratory Ventilation, Less than 24 Consecutive Hours, Continuous Positive Airway Pressure (ICD-10-PCS; principal; 2024-05-08)
PROC: 3E03329 Introduction of Other Anti-infective into Peripheral Vein, Percutaneous Approach (ICD-10-PCS; 2024-05-08)
PROC: 3E02340 Introduction of Influenza Vaccine into Muscle, Percutaneous Approach (ICD-10-PCS; 2024-05-08)
PROC: 30233J1 Transfusion of Nonautologous Serum Albumin into Peripheral Vein, Percutaneous Approach (ICD-10-PCS; 2024-05-08)
PROC: 06HY33Z Insertion of Infusion Device into Lower Vein, Percutaneous Approach (ICD-10-PCS; 2024-05-12)
PROC: 0T9B70Z Drainage of Bladder with Drainage Device, Via Natural or Artificial Opening (ICD-10-PCS; 2024-05-12)
PROC: 30233N1 Transfusion of Nonautologous Red Blood Cells into Peripheral Vein, Percutaneous Approach (ICD-10-PCS; 2024-05-14)
PROC: 3E0336Z Introduction of Nutritional Substance into Peripheral Vein, Percutaneous Approach (ICD-10-PCS; 2024-05-14)
PROC: 0W9J30Z Drainage of Pelvic Cavity with Drainage Device, Percutaneous Approach (ICD-10-PCS; 2024-05-14)
DX: A41.9 Sepsis, unspecified organism (principal); J96.21 Acute and chronic respiratory failure with hypoxia; R65.21 Severe sepsis with septic shock; J96.22 Acute and chronic respiratory failure with hypercapnia; K57.20 Diverticulitis of large intestine with perforation and abscess without bleeding; N17.9 Acute kidney failure, unspecified; J44.1 Chronic obstructive pulmonary disease with (acute) exacerbation; D62 Acute posthemorrhagic anemia; I13.0 Hypertensive heart and chronic kidney disease with heart failure and stage 1 through stage 4 chronic kidney disease, or unspecified chronic kidney disease; K56.0 Paralytic ileus; Z66 Do not resuscitate; Z51.5 Encounter for palliative care; Z23 Encounter for immunization; E78.5 Hyperlipidemia, unspecified; I50.810 Right heart failure, unspecified; E03.9 Hypothyroidism, unspecified; G47.33 Obstructive sleep apnea (adult) (pediatric); M06.9 Rheumatoid arthritis, unspecified; G89.4 Chronic pain syndrome; K52.9 Noninfective gastroenteritis and colitis, unspecified; I27.20 Pulmonary hypertension, unspecified; M54.50 Low back pain, unspecified; N18.30 Chronic kidney disease, stage 3 unspecified; I07.1 Rheumatic tricuspid insufficiency; F32.9 Major depressive disorder, single episode, unspecified; N73.9 Female pelvic inflammatory disease, unspecified; Z98.890 Other specified postprocedural states; Z87.891 Personal history of nicotine dependence; Z79.899 Other long term (current) drug therapy; Z79.890 Hormone replacement therapy; Z79.01 Long term (current) use of anticoagulants; Z99.81 Dependence on supplemental oxygen; Z86.73 Personal history of transient ischemic attack (TIA), and cerebral infarction without residual deficits; Z79.52 Long term (current) use of systemic steroids
CPT/HCPCS: 0241U; 27040; 36415; 36430; 36569; 71045; 71260; 74177; 77012; 80048; 80053; 80069; 82330; 82803; 83605; 83735; 83880; 84100; 84443; 84478; 84484; 85014; 85018; 85025; 85027; 85384; 85610; 85730; 86850; 86900; 86901; 86923; 87040; 87070; 87077; 87186; 87205; 87493; 93005; 93010; 94640; 94644; 94660; 94664; 94762; 96365-59; 96368; 99285-25; A9270; C1751; J0360; J0456; J0696; J1170; J1650; J1720; J2060; J2270; J2470; J2543; J2919; J3010; J3411; J7030; J7042; J7050; J7060; J7070; P9016; P9047; Q9967